=== PATIENT | male | born 1955 | race Caucasian/White ===

== ENCOUNTER 2017-12-13 06:39 | Emergency (ER) | payer OTHER ==
[~2017-12-13 06:39] MED LIST: AMLO-114 PO; ASPCH81X PO; GLC500 PO; LISI20TA3 PO; PANT40TA PO; SIMV20TA2 PO
[2017-12-13 06:47] VITALS: TEMP 36.7; Ht 193 cm
[2017-12-13] MEDS ORDERED: ATOR-24 PO (07:12)
[2017-12-13] MEDS ORDERED: MELO7.5T5 PO (07:12)
[2017-12-13] MEDS ORDERED: HYDR-5688 PO (07:12)
[2017-12-13] MEDS ORDERED: DICLOFENAC SOD 1% GEL 100 GM TUBE EXT STA (07:19)
[2017-12-13] MEDS ORDERED: ACETAMINOPHEN 500 MG TAB PO STA (07:19)
--- NOTE | 2017-12-13 07:20 | EMERGENCY ROOM VISIT NOTE ---
ED Visit Note First contact with patient: 06:52 CHIEF COMPLAINT: Left hip pain HISTORY OF PRESENT ILLNESS: This 62-year-old male patient presents to the emergency department, ambulatory, with his , complaining of left hip pain. The patient states yesterday he bent over, and began experiencing the pain. He states last evening he noticed a bulge in the area of the hip, and thought his bone was out of the socket. He was able to stand, sit, and walk when this occurred. He states last evening his pain was a 9/10. He was unable to sleep due to the pain. He did take a dose of hydrocodone and states he did not note significant improvement in his symptoms. He did take a dose of Advil as well. This morning, while walking into the bathroom, he states the hip "gave out". He reports falling and landing on his buttocks. He denies striking his head. He states since then he is having difficulty with weightbearing. His pain has now improved to 5/10. He states the joint feels "loose". He denies any numbness , tingling, weakness, saddle anesthesia, back pain (different than his chronic back pain related to a discectomy), previous injury to the hip. The patient does report a history of HTN and has not yet taken his medication. REVIEW OF SYSTEMS: A 6 system review of systems was performed with positives and pertinent negatives listed in the history of present illness. All other systems were reviewed and are negative. ALLERGIES: None MEDICATIONS: Metformin, Mobic, Lipitor, Norvasc PMH: Hypertension, prediabetes SOCIAL HISTORY: Patient lives locally with family. He denies drug, alcohol, tobacco use. PHYSICAL EXAM: VITALS: Vitals are noted on the nurse's note and reviewed by myself. Vital signs stable. GENERAL: This is a 62-year-old white male, in no acute distress, nondiaphoretic , well-developed well-nourished. MUSCULOSKELETAL - Left hip without erythema, edema, and ecchymosis. Mild tenderness to palpation appreciated over the greater trochanter. No tenderness extending into the upper leg or buttocks. 5/5 strength appreciated throughout. Pt has full AROM at affected joint. Equal strength Left/Right versus Left/ Right. Pt able to perform AROM at affected joint. No tenderness to palpation appreciated in the lumbar spine distribution. MARIE (GABRIEL) TEST: Positive for tenderness at extreme of external rotation , but good ROM HIP SCOURING TEST: No labral tear. NEUROLOGIC/VASCULAR - Neurovascularly intact distally with +3/5 dorsalis pedis pulses palpated bilaterally. Normal sensation to light and sharp touch appreciated distally. RADIOLOGY: L PELVIS/UNILATERAL HIP 2-3VIEWS CLINICAL HISTORY: 62 years-old Male presenting with left hip pain, fall. TECHNIQUE: Single frontal view of the pelvis and frontal and frog-leg lateral views of the left hip were obtained. COMPARISON: None. FINDINGS: Sacrum and iliac joints, hip joints, pubic symphysis congruent. Bony pelvis intact. Arcuate lines intact. Left femoral neck intact. No acute fracture or malalignment. No advanced degenerative change. No radiographic soft tissue abnormality. IMPRESSION: No acute osseous injury or advanced degenerative change. Electronically signed by: Dre Martinez M.D. 12/13/2017 7:49 AM Dictated Date/Time: 12/13/2017 7:48 AM EMERGENCY DEPARTMENT COURSE: The patient was seen and evaluated as above. X- rays performed and reviewed by myself and radiologist as above. The patient was given Voltaren gel and 1g Tylenol. I discussed the findings with the patient and his at bedside. I did offer crutches or a walker to help with ambulation. The patient requests crutches. He was given crutches with gait training. He was encouraged to follow-up within 1 week with orthopedics. He verbalizes agreement with the assessment and plan. Discharge instructions reviewed. The patient was discharged home in good condition. I attest that I have personally reviewed the patient's current medication list. Blood Pressure Screening: Patient was found to have a slightly elevated blood pressure due to circumstances. I do not believe that the patient requires hypertension monitoring. The patient does have a hx. HTN and has not taken his medication this morning. Etiologies such as soft tissue injury, fracture, dislocation, subluxation, bursitis, neurovascular compromise, compartment syndrome, as well as others were entertained. DIAGNOSIS: left hip pain The chart was completed utilizing [employer] voice recognition software. Grammatical errors, random word insertions, pronoun errors, and incomplete sentences are an occasional consequence of this system due to software limitations, ambient noise, and hardware issues. Any formal questions or concerns about the content, text, or information contained within the body of this dictation should be directly addressed to the provider for clarification. Current/Historical Medications Scheduled Amlodipine (Norvasc), 10 MG PO QPM Atorvastatin (Lipitor), 40 MG PO DAILY Lisinopril (Prinivil), 20 MG PO QPM Meloxicam (Mobic), 15 MG PO DAILY Metformin HCl (Metformin HCl), 1 TAB PO TID Scheduled PRN Hydrocodone/Acetaminophen 5MG/325MG (Closter 5MG/325MG), 1 TABLET PO BID PRN for Pain Allergies Coded Allergies: No Known Allergies (Unverified , 12/13/17) Vital Signs Date Time Temp Pulse Resp B/P (MAP) Pulse Ox O2 Delivery O2 Flow Rate FiO2 12/13/17 06:47 36.7 79 20 145/104 98 Room Air Medications Administered Medications (Trade) Dose Ordered Sig/Nisa Route Start Time Stop Time Status Last Admin Dose Admin Diclofenac Sodium (Voltaren 1% Top Gel) 1 appln NOW STAT EXT 12/13/17 07:19 12/13/17 07:20 DC 12/13/17 07:19 1 APPLN Acetaminophen (Tylenol Tab) 1,000 mg NOW STAT PO 12/13/17 07:19 12/13/17 07:20 DC 12/13/17 07:19 1,000 MG Departure Information Impression Primary Impression: Left hip pain Dispostion Home / Self-Care Condition GOOD Referrals Drake Greene M.D. (MEDICAL) (PCP) [facility] Patient Instructions ED Sprain Hip, My [facility] Additional Instructions You were seen in the ED today for left hip pain. I suspect either a sprain, strain, bursitis, or mild subluxation yesterday. X-ray was negative for fracture. Take the Mobic you have at home as directed for pain. Use Voltaren gel up to 4 times per day as needed for pain. Acetaminophen(Tylenol) may be used for fever or pain. Use 1000mg every six hours as needed. Avoid using more than 4000mg in a 24 hour period. Ice compresses for 20 minutes at a time four times daily for 2-3 days. Use the crutches as instructed to help with ambulation. Rest and elevate your injury. Return to the ER immediately for any numbness, tingling, severe pain, extreme swelling in the extremity or as needed. Call [facility], [phone], next week if no improvement in symptoms, or sooner if you experience any worsening of your symptoms, to arrange follow up for your injury.
--- NOTE | 2017-12-13 07:50 | DIAGNOSTIC IMAGING REPORT ---
L PELVIS/UNILATERAL HIP 2-3VIEWS CLINICAL HISTORY: 62 years-old Male presenting with left hip pain, fall. TECHNIQUE: Single frontal view of the pelvis and frontal and frog-leg lateral views of the left hip were obtained. COMPARISON: None. FINDINGS: Sacrum and iliac joints, hip joints, pubic symphysis congruent. Bony pelvis intact. Arcuate lines intact. Left femoral neck intact. No acute fracture or malalignment. No advanced degenerative change. No radiographic soft tissue abnormality. IMPRESSION: No acute osseous injury or advanced degenerative change. Electronically signed by: Dre Martinez M.D. 12/13/2017 7:49 AM Dictated Date/Time: 12/13/2017 7:48 AM
[2017-12-13 08:14] VITALS: BP 143/117; PULSE 71; O2SAT 95
== END 2017-12-13 08:15 | disposition home or self-care (01) ==
LOC: C.EDB 06:40
DX: M25.552 Pain in left hip (principal); W19.XXXA Unspecified fall, initial encounter; M54.9 Dorsalgia, unspecified; G89.29 Other chronic pain; I10 Essential (primary) hypertension; R73.03 Prediabetes; Z79.899 Other long term (current) drug therapy

== ENCOUNTER 2020-06-19 11:49 | Inpatient (IN) ==
[2020-06-19] MEDS ORDERED: MoRPHine SULFATE 4 MG/ML 1 ML CARP\\VIAL IV STA ×2 (12:15→14:32)
[2020-06-19] MEDS ORDERED: ONDANSETRON INJ 2 MG/ML 2 ML VIAL IV STA (12:15)
--- NOTE | 2020-06-19 12:18 | Emergency Department Note ---
History of Present Illness General Chief complaint: Back Injury/Pain Stated complaint: SEVERE LOWER BACK PAIN Time Seen by Provider: 06/19/20 12:05 History of Present Illness Maximum Pain Intensity: 8 This is a 65-year-old male that presents to the emergency department via private vehicle with complaints of "severe lower back pain, cannot take pain anymore". The patient notes a history of chronic back pain and is scheduled for surgery with Dr. Lombardo on July 26. Patient notes that this past Sunday he was performing normal activities and then Sunday when he woke up he felt st iffness in the back. This is not necessarily new for him however this seemed to worsen and Sunday. He notes the pain is now excruciating and he cannot find any relief. He presented here yesterday and notes that he received pain medication and steroids without relief. He persists with discomfort and now cannot lay flat or stand. He has to sit in a hunched over position at all times. Current discomfort 03/01. It is worse with laying flat and ambulation. Patient also notes new onset right lower extremity edema. No lower extremity weakness, bowel or bladder incontinence, numbness or tingling in the genital region. No fevers, chills, chest pain or shortness of breath. Home Medications Medication Instructions Recorded Confirmed Type docusate sodium [Colace] 100 mg PO BID #60 cap 06/18/20 06/19/20 Rx lidocaine [Lidoderm] 1 patch TOPICAL DAILY #15 ea 06/18/20 06/19/20 Rx oxycodone 5 mg PO Q6H PRN #14 tab 06/18/20 06/19/20 Rx sennosides [Senokot] 8.6 mg PO HS #30 tab 06/18/20 06/19/20 Rx amlodipine 10 mg PO DAILY 06/19/20 06/19/20 History gabapentin 300 mg PO DIRECTED 06/19/20 06/19/20 History lisinopril 20 mg PO DAILY 06/19/20 06/19/20 History metformin 500 mg PO TID 06/19/20 06/19/20 History pantoprazole 40 mg PO BID 06/19/20 06/19/20 History tramadol 50 mg PO Q6 06/19/20 06/19/20 History Allergies Allergy/AdvReac Type Severity Reaction Status Date / Time No Known Allergies Allergy Unverified 12/13/17 07:12 Past Med/Surg History Medical History GERD (gastroesophageal reflux disease) Hyperlipidemia Hypertension Lumbar spinal stenosis Type 2 diabetes mellitus Surgical History History of back surgery L5 discectomy 1996 Social History Smoking Status: Never smoker Hx Alcohol Use: Yes Alcohol Intake Frequency: Monthly or Less 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 Feels Safe at Home: Yes Review of Systems A total of 10 systems reviewed and were otherwise negative Physical Exam Vital Signs Vital Signs - 24 hr 06/19/20 11:53 06/19/20 13:49 Temperature 37.2 C Temperature Source Oral Pulse Rate 77 Pulse Rate [Finger] 66 Pulse Rhythm Regular Pulse Strength Normal Respiratory Rate 18 17 Respiratory Effort / Characteristics Non-Labored Respiratory Depth Normal Respiratory Pattern Regular Blood Pressure 157/105 H Blood Pressure [Right Arm] 115/72 Blood Pressure Mean 122 Blood Pressure Mean [Right Arm] 86 Blood Pressure Position Sitting Pulse Oximetry 98 99 Oxygen Delivery Method Room Air Room Air Sepsis Recent Fever Within 48 Hours No Sepsis New/Unexplained Change in Mental Status No Sepsis Action Taken by Nursing No Action Required VITAL SIGNS - Vital signs and nursing notes were reviewed. Stable and afebrile. GENERAL -65-year-old male appearing he is stated age who is in no acute distress but appears to be in pain and is sitting in a forward flexed position in a wheelchair. Communicates well with provider and answers questions appropriately. SKIN -no meningeal or petechial rash. NECK - Neck with FROM. No nuchal rigidity. LUNGS - Chest wall symmetric without accessory muscle use, intercostals retractions, or central cyanosis. Normal vesicular breath sounds CTA B/L. No wheezes, rales, or rhonchi appreciated. CARDIAC - RRR with S1/S2. No murmur, rubs, or gallops appreciated. ABDOMEN - Abdominal contour normal without pulsations or visible masses. BS normoactive all four quadrants. No tenderness, palpable masses, hepatosplenomegaly, or ascites noted. EXTREMITIES - No clubbing or peripheral cyanosis. No pretibial edema present. +5/5 strength noted in UE/LE bilaterally. NEUROLOGIC - Cranial nerves II through XII grossly intact. Sensory intact to light touch throughout. PSYCH - A&O, and cooperates fully with examiner. Pt is very pleasant and interacts well with examiner. Course Administered Medications Discontinued Medications Acetaminophen (Acetaminophen 325 Mg Tab) 650 mg PO NOW STA Stop: 06/19/20 14:33 Last Admin: 06/19/20 14:40 Dose: 650 mg Documented by: [id number] Dexamethasone (Dexamethasone Sod Inj 10 Mg/Ml Vial) 10 mg IV NOW ONE Stop: 06/19/20 14:33 Last Admin: 06/19/20 14:40 Dose: 10 mg Documented by: [id number] Ketorolac Tromethamine (Ketorolac 30 Mg/Ml Vial) 30 mg IV NOW ONE Stop: 06/19/20 14:33 Last Admin: 06/19/20 14:40 Dose: 30 mg Documented by: [id number] Lidocaine (Lidocaine 5% 1 Patch) 1 patch TD NOW STA Stop: 06/19/20 14:33 Last Admin: 06/19/20 14:40 Dose: 1 patch Documented by: [id number] Morphine Sulfate (Morphine Sulfate 4 Mg/Ml 1 Ml Carp\\Vial) 4 mg IV NOW STA Stop: 06/19/20 12:16 Last Admin: 06/19/20 12:35 Dose: 4 mg Documented by: [id number] Morphine Sulfate (Morphine Sulfate 4 Mg/Ml 1 Ml Carp\\Vial) 4 mg IV NOW STA Stop: 06/19/20 14:33 Last Admin: 06/19/20 14:40 Dose: 4 mg Documented by: [id number] Ondansetron HCl (Ondansetron Inj 2 Mg/Ml 2 Ml Vial) 4 mg IV NOW STA Stop: 06/19/20 12:16 Last Admin: 06/19/20 12:35 Dose: 4 mg Documented by: [id number] Medical Decision Making Laboratory Data Result diagrams: 06/19/20 12:29 06/19/20 12:29 Lab Results 06/19/20 06/19/20 Range/Units 12:29 12:29 WBC 10.61 (4.8-10.8) K/uL RBC 4.90 (4.7-6.1) M/uL Hgb 15.7 (14.0-18.0) g/dL Hct 46.2 (42-52) % MCV 94.3 (80-100) fL MCH 32.0 (25-34) pg MCHC 34.0 (32-36) g/dL RDW Std Deviation 49.0 H (36.4-46.3) fL RDW Coeff of Da 14.2 (11.5-14.5) % Plt Count 279 (130-400) K/uL MPV 10.6 H (7.4-10.4) fL Immature Gran % (Auto) 0.1 % Neut % (Auto) 77.2 % Lymph % (Auto) 13.9 % Eagle % (Auto) 7.9 % Eos % (Auto) 0.6 % Baso % (Auto) 0.3 % Neut # (Auto) 8.19 H (1.4-6.5) K/uL Lymph # (Auto) 1.48 (1.2-3.4) K/uL Eagle # (Auto) 0.84 H (0.11-0.59) K/uL Eos # (Auto) 0.06 (0-0.5) K/uL Baso # (Auto) 0.03 (0-0.2) K/uL Immature Gran # (Auto) 0.01 (0.00-0.02) K/uL Sodium 138 (136-145) mmol/L Potassium 3.9 (3.5-5.1) mmol/L Chloride 106 (98-107) mmol/L Carbon Dioxide 30 (21-32) mmol/L Anion Gap 2.0 L (3-11) BUN 16 (7-18) mg/dl Creatinine 0.88 (0.6-1.4) mg/dl Est Cr Clr Drug Dosing Not Reportable Est GFR ( Amer) 104.5 Est GFR (Non-Af Amer) 90.1 BUN/Creatinine Ratio 18.0 (10-20) Glucose 128 H (70-99) mg/dl Calcium 9.4 (8.5-10.1) mg/dl Total Bilirubin 0.4 (0.2-1) mg/dl AST 13 L (15-37) U/L ALT 26 (12-78) U/L Alkaline Phosphatase 79 (45-117) U/L Total Protein 8.2 (6.4-8.2) gm/dl Albumin 4.4 (3.4-5.0) gm/dl Globulin 3.8 (2.5-4.0) gm/dl Albumin/Globulin Ratio 1.2 (0.9-2) Imaging Data Radiologist's Impression: CT lumbar spine wo con HISTORY: 65 years-old Male Low back pain acute low back pain without reported trauma. COMPARISON: MRI lumbar spine 02/26/2020 TECHNIQUE: Multiple axial CT images of the lumbar spine were obtained without the use of IV contrast. A dose lowering technique was used consistent with the principals of ALA. FINDINGS: 18 degrees dextroscoliosis measured from L1-L4. Severe disc space narrowing with moderate spondylitic spurring at L1-L2. 4 mm anterolisthesis L3 on L4 is likely secondary to chronic facet arthrosis. Moderate to severe disc space narrowing at L5-S1 with posterior disc osteophyte complex. No acute fracture or subluxation. The imaged sacrum and iliac bones appear intact. Severe multilevel facet arthrosis. Calcified plaque of the abdominal aorta without aneurysm. No adenopathy. The paraspinal tissues are unremarkable. T12-L1: Posterior annular disc bulge with ligamentum flavum thickening and moderate facet arthrosis. Mild flattening of the ventral thecal sac without significant central canal stenosis. Mild bilateral foraminal narrowing. L1-L2: Posterior disc osteophyte complex with ligamentum flavum thickening and moderate facet arthrosis. Flattening of the ventral thecal sac without significant central canal stenosis. There is at least mild narrowing of the lateral recesses. Moderate right and severe left foraminal narrowing. L2-L3: Posterior annular disc bulge with suggestion of a superimposed left paracentral/left lateral recess disc protrusion (image 164 series 3 image 38 series 301). This appears similar to comparison and again causes severe central canal stenosis with moderate right and severe left lateral recess narrowing. Moderate left with mild to moderate right foraminal narrowing. L3-L4: Grade 1 anterolisthesis, likely degenerative. Posterior annular disc bulge/disc space uncovering with ligamentum flavum thickening and severe facet arthrosis. There is unchanged severe central canal stenosis with severe narrowing of the lateral recesses. Severe left with moderate right foraminal narrowing. L4-L5: Posterior annular disc bulge with ligamentum flavum thickening and severe facet arthrosis. There is unchanged severe central canal stenosis with severe narrowing of the lateral recesses. Moderate left with moderate to severe right foraminal narrowing. L5-S1: Posterior disc osteophyte complex with ligamentum flavum thickening and moderate to severe facet arthrosis. Mild central canal stenosis with moderate bilateral foraminal narrowing. IMPRESSION: 1. No acute fracture or subluxation. 2. Multilevel discogenic degeneration with ligamentum flavum thickening and facet arthrosis redemonstrated which again results in severe multilevel central canal stenosis with multilevel foraminal narrowing. Findings appear similar to the 02/26/2020 MRI lumbar spine. 3. Lumbar dextroscoliosis. ACT 112: Negative or not required by law. The above report was generated using voice recognition software. It may contain grammatical, syntax or spelling errors. Electronically signed by: Luis Stein M.D. 06/19/2020 1:34 PM US venous doppler LE RT HISTORY: 65 years-old Male RLE edema acute swelling of the right lower extremity COMPARISON: None TECHNIQUE: Multiple real-time sonographic images of the right lower extremity deep venous structures were obtained assessing grayscale appearance, color and spectral flow FINDINGS: Normal flow, compressibility, phasicity and augmentation of the right lower extremity deep venous structures. IMPRESSION: No sonographic evidence of deep venous thrombosis. ACT 112: Negative or not required by law. The above report was generated using voice recognition software. It may contain grammatical, syntax or spelling errors. Electronically signed by: Luis Stein M.D. 06/19/2020 2:25 PM MDM Narrative Patient was seen and evaluated as above in room C 11. Review was performed of nursing notes and vital signs. I did review pertinent previous visits and patient history. After obtaining a thorough history and physical examination the above work up was performed. He presents to us today with low back pain. He has history of such. I reviewed the previous MRI. Given the patient's inability to stand or lay flat and continued pain despite medication it is felt that further evaluation and management is warranted. IV access was established. Labs were drawn. A CT scan was obtained of the L-spine. Results as above. There is multilevel discogenic degeneration with ligamentum flavum thickening and facet arthrosis redemonstrated which again results in severe multilevel central canal stenosis with multilevel foraminal narrowing. These findings are similar compared to previous MRI. With the patient's clinical presentation wor sening I did find it reasonable to discuss this with the patient's establish associate relations specialist, Dr. Lombardo. We reviewed care as well as requiring multiple IV analgesics here. At this point inpatient management is felt warranted with likely surgical intervention in the near future. Patient will be admitted to medicine noting his other comorbidities and will be evaluated in the a.m. by Dr. Lobmardo here in the hospital. Patient in agreement with plan of care and very appreciative. Case discussed with Dr. Brand of medicine team. Please refer to further documentation regarding his stay. In addition, a right lower extremity ultrasound was obtained to rule out DVT and this was negative. No neurovascular deficit on today's examination. In addition to the patient being admitted, at this time we will refrain from any further dosing of Toradol and dexamethasone pending surgical intervention. Case was discussed with the attending physician. GCS: 15 In the evaluation and treatment of this patient the following differential diagnosis entertained: Fracture, dislocation, subluxation, cauda equina syndrome, AAA, diverticulitis, appendicitis, torsion, osteomyelitis, piriformis syndrome, strain, sprain, among others. Impression & Plan Intractable low back pain Discharge Plan Visit Data Chief Complaint: Back Injury/Pain Stated Complaint: SEVERE LOWER BACK PAIN ED Provider: [facility] ED Midlevel Provider: Pb Dickson Discharge Problem: Intractable low back pain Patient Disposition: Home - Self-Care Forms Stand Alone Forms: [facility], Virtual Emergency Department, Important Visit Information Prescriptions Prescriptions: No Action lidocaine [Lidoderm] 5 % adhesive patch,medicated 1 patch topical DAILY Qty: 15 RF: 0 oxycodone 5 mg tablet 5 mg PO Q6H PRN (Reason: pain) Qty: 14 RF: 0 sennosides [Senokot] 8.6 mg tablet 8.6 mg PO HS Qty: 30 RF: 0 docusate sodium [Colace] 100 mg capsule 100 mg PO BID Qty: 60 RF: 0 metformin 500 mg tablet 500 mg PO TID RF: 0 lisinopril 20 mg tablet 20 mg PO DAILY RF: 0 tramadol 50 mg tablet 50 mg PO Q6 RF: 0 amlodipine 10 mg tablet 10 mg PO DAILY RF: 0 pantoprazole 40 mg tablet,delayed release (DR/EC) 40 mg PO BID RF: 0 gabapentin 300 mg capsule 300 mg PO DIRECTED RF: 0 Referrals Referrals: Nikolay Byers [Primary Care Provider] -
[2020-06-19 12:52] LABS: Basophils # (auto) 0.03 K/uL (0-0.2); Basophils % (auto) 0.3 %; Eosinophils # (auto) 0.06 K/uL (0-0.5); Eosinophils % (auto) 0.6 %; Hematocrit (blood only) 46.2 % (42-52); Hemoglobin 15.7 g/dL (14.0-18.0); Immature Granulocytes # (auto) 0.01 K/uL (0.00-0.02); Immature Granulocytes % (auto) 0.1 %; Lymphocytes # (auto) 1.48 K/uL (1.2-3.4); Lymphocytes % (auto) 13.9 %; Mean Corpuscular Volume 94.3 fL (80-100); Mean Platelet Volume 10.6 fL (7.4-10.4); Monocytes # (auto) 0.84 K/uL (0.11-0.59); Monocytes % (auto) 7.9 %; Neutrophils # (auto) 8.19 K/uL (1.4-6.5); Neutrophils % (auto) 77.2 %; Platelet Count 279 K/uL (130-400); RDW Coefficient of Variation 14.2 % (11.5-14.5); White Blood Count 10.61 K/uL (4.8-10.8)
[2020-06-19 13:10] LABS: Alanine Aminotransferase 26 U/L (12-78); Albumin Level 4.4 gm/dl (3.4-5.0); Aspartate Aminotransferase 13 U/L (15-37); Blood Urea Nitrogen 16 mg/dl (7-18); Calcium 9.4 mg/dl (8.5-10.1); Carbon Dioxide 30 mmol/L (21-32); Chloride 106 mmol/L (98-107); Est GFR (African American) 104.5; Est GFR (Non-African American) 90.1; Glucose 128 mg/dl (70-99); Potassium 3.9 mmol/L (3.5-5.1); Sodium 138 mmol/L (136-145)
[2020-06-19 13:13] LABS: Albumin Globulin Ratio 1.2 (0.9-2); Alkaline Phosphatase 79 U/L (45-117); Bilirubin,Total 0.4 mg/dl (0.2-1); Globulin 3.8 gm/dl (2.5-4.0); Total Protein 8.2 gm/dl (6.4-8.2)
--- NOTE | 2020-06-19 13:35 | CT Scan Report ---
CT lumbar spine wo con HISTORY: 65 years-old Male Low back pain acute low back pain without reported trauma. COMPARISON: MRI lumbar spine 02/26/2020 TECHNIQUE: Multiple axial CT images of the lumbar spine were obtained without the use of IV contrast. A dose lowering technique was used consistent with the principals of ROBEL. FINDINGS: 18 degrees dextroscoliosis measured from L1-L4. Severe disc space narrowing with moderate spondylitic spurring at L1-L2. 4 mm anterolisthesis L3 on L4 is likely secondary to chronic facet arthrosis. Mod erate to severe disc space narrowing at L5-S1 with posterior disc osteophyte complex. No acute fractu re or subluxation. The imaged sacrum and iliac bones appear intact. Severe multilevel facet arthrosis . Calcified plaque of the abdominal aorta without aneurysm. No adenopathy. The paraspinal tissues are u nremarkable. T12-L1: Posterior annular disc bulge with ligamentum flavum thickening and moderate facet arthrosis. Mild flattening of the ventral thecal sac without significant central canal stenosis. Mild bilateral foraminal narrowing. L1-L2: Posterior disc osteophyte complex with ligamentum flavum thickening and moderate facet arthros is. Flattening of the ventral thecal sac without significant central canal stenosis. There is at leas t mild narrowing of the lateral recesses. Moderate right and severe left foraminal narrowing. L2-L3: Posterior annular disc bulge with suggestion of a superimposed left paracentral/left lateral r ecess disc protrusion (image 164 series 3 image 38 series 301). This appears similar to comparison an d again causes severe central canal stenosis with moderate right and severe left lateral recess narro wing. Moderate left with mild to moderate right foraminal narrowing. L3-L4: Grade 1 anterolisthesis, likely degenerative. Posterior annular disc bulge/disc space uncoveri ng with ligamentum flavum thickening and severe facet arthrosis. There is unchanged severe central ca nal stenosis with severe narrowing of the lateral recesses. Severe left with moderate right foraminal narrowing. L4-L5: Posterior annular disc bulge with ligamentum flavum thickening and severe facet arthrosis. The re is unchanged severe central canal stenosis with severe narrowing of the lateral recesses. Moderate left with moderate to severe right foraminal narrowing. L5-S1: Posterior disc osteophyte complex with ligamentum flavum thickening and moderate to severe fac et arthrosis. Mild central canal stenosis with moderate bilateral foraminal narrowing. IMPRESSION: 1. No acute fracture or subluxation. 2. Multilevel discogenic degeneration with ligamentum flavum thickening and facet arthrosis redemonst rated which again results in severe multilevel central canal stenosis with multilevel foraminal narro wing. Findings appear similar to the 02/26/2020 MRI lumbar spine. 3. Lumbar dextroscoliosis. ACT 112: Negative or not required by law. The above report was generated using voice recognition software. It may contain grammatical, syntax o r spelling errors. Electronically signed by: Luis Stein M.D. 06/19/2020 1:34 PM
--- NOTE | 2020-06-19 14:26 | Ultrasound Report ---
US venous doppler LE RT HISTORY: 65 years-old Male RLE edema acute swelling of the right lower extremity COMPARISON: None TECHNIQUE: Multiple real-time sonographic images of the right lower extremity deep venous structures were obtained assessing grayscale appearance, color and spectral flow FINDINGS: Normal flow, compressibility, phasicity and augmentation of the right lower extremity deep venous str uctures. IMPRESSION: No sonographic evidence of deep venous thrombosis. ACT 112: Negative or not required by law. The above report was generated using voice recognition software. It may contain grammatical, syntax o r spelling errors. Electronically signed by: Luis Stein M.D. 06/19/2020 2:25 PM
[2020-06-19] MEDS ORDERED: DEXAMETHASONE SOD INJ 10 MG/ML VIAL IV ONE (14:32)
[2020-06-19] MEDS ORDERED: LIDOCAINE 5% 1 PATCH TD STA (14:32)
[2020-06-19] MEDS ORDERED: KETOROLAC 30 MG/ML VIAL IV ONE (14:32)
[2020-06-19] MEDS ORDERED: ACETAMINOPHEN 325 MG TAB PO STA (14:32)
--- NOTE | 2020-06-19 14:42 | Emergency Department Note ---
ED Visit Note I have seen and examined this patient with Pb Dickson and generally agree with the treatment plan as discussed. .
--- NOTE | 2020-06-19 15:27 | History & Physical Report ---
Date of Service June 19, 2020 Assessment & Plan (1) Intractable back pain: Acetaminophen 1g TID Gabapentin 300mg PO TID Lidocaine patch Oxycodone 5-10mg PO Q4H PRN Dilaudid is oxycodone above interventions ineffective. No further steroids or NSAIDs per Dr Lombardo's recommendations as surgery potentially planned for Sunday Preop EKG and chest x-ray ordered (2) Lumbar spinal stenosis: Consult orthopedic surgery - Dr Lombardo aware and will see tomorrow (3) GERD (gastroesophageal reflux disease): Continue pantoprazole 40 mg p.o. twice daily (4) Type 2 diabetes mellitus: HbA1c with a.m. labs BSG ACHS Insulin NPH 10 units x1 to cover for dexamethasone. Lantus 5 units twice daily NovoLog: Goal BSG Range: Low 110 mg/dL, High 140 mg/dL Correction Factor: 45 mg/dL/unit INS:CHO Ratio: 1unit per 15 gms CHO consumed (5) Hypertension: Continue his usual home regimen of lisinopril 20 mg p.o. daily, amlodipine 10 mg p.o. daily. (6) Hyperlipidemia: Notable history of this from patient but not on statin. Follow-up outpatient. (7) DVT prophylaxis: SCDs Admission and Anticipated Discharge Date Admission Date: 06/19/2020 History of Present Illness Chief Complaint: Back pain Primary Care Provider: Nikolay Byers Shahram Draper is a 65 year old male who presents to the ER with severe back pain radiating down his right leg. He is known to Dr Lombardo and already has spinal fusion surgery planned for July. He has had back pain on and off after a slipped disc in 1996. However sudden became worse 3 days ago. Unsure what he did to exacerbate it but has been getting progressively worse since. He came to the ER yesterday and was given a course of steroids and oxycodone however despite these interventions his pain is 10/10 and he is stuck in a bent over position in a wheelchair. He is usually ambulatory with a cane. No perianal numbness or bladder/bowel incontinence. He does note gabapentin is useful for his pain. His care was discussed with Dr Lombardo by the ER PA and advised admission under medicine and he will see in the morning potentially for need for surgery on Sunday. Allergies Allergy/AdvReac Type Severity Reaction Status Date / Time No Known Allergies Allergy Unverified 12/13/17 07:12 Home Medications Medication Instructions Recorded Confirmed Type docusate sodium [Colace] 100 mg PO BID #60 cap 06/18/20 06/19/20 Rx lidocaine [Lidoderm] 1 patch TOPICAL DAILY #15 ea 06/18/20 06/19/20 Rx oxycodone 5 mg PO Q6H PRN #14 tab 06/18/20 06/19/20 Rx sennosides [Senokot] 8.6 mg PO HS #30 tab 06/18/20 06/19/20 Rx amlodipine 10 mg PO DAILY 06/19/20 06/19/20 History gabapentin 300 mg PO DIRECTED 06/19/20 06/19/20 History lisinopril 20 mg PO DAILY 06/19/20 06/19/20 History metformin 500 mg PO TID 06/19/20 06/19/20 History pantoprazole 40 mg PO BID 06/19/20 06/19/20 History tramadol 50 mg PO Q6 06/19/20 06/19/20 History Past Med/Surg History Medical History GERD (gastroesophageal reflux disease) Hyperlipidemia Hypertension Lumbar spinal stenosis Type 2 diabetes mellitus Surgical History History of back surgery L5 discectomy 1996 Social History Smoking Status: Never smoker Hx Alcohol Use: No Hx Substance Use: No Communication Ability: Effective Radar Air Traffic Controller Required: No Beliefs That Will Affect Care: None Current Living Situation: Spouse 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 Other Information That Helps Us Care for You: No Feels Safe at Home: Yes Safety Concerns: Feels Safe At This Time Assistive Devices: Walker Review of Systems Review of Systems: All systems reviewed & are unremarkable except as noted in HPI & below Physical Exam Constitutional: + acute distress (patient is stuck in wheelchair leaning forward to avoid severe pain) Eyes: + anicteric sclerae; normal pupil size ENMT: external ear and nose normal, oropharynx normal Neck: trachea midline Respiratory: normal respiratory effort, lungs clear to auscultation Cardiovascular: RRR, no murmur, no edema Gastrointestinal (Abdomen): normal bowel sounds, soft, nontender, no hepatosplenomegaly Musculoskeletal: Spine: + lumbar spinal tenderness (L4-5 central but also paraspinal R> L) Skin: no rashes, warm and dry Neurologic: Motor/Sensory: + sensory deficit (LE b/l No L4-S1 numbness) Psychiatric: Orientation: alert and oriented x 3 Affect: + tearful affect Mood: + depressed mood Results & Data Results & Data ([facility]) Vital Signs (Past 12 Hours) Vital Signs Temp Pulse Pulse Resp BP BP Pulse Ox 06/19/20 13:49 66 17 115/72 99 06/19/20 11:53 37.2 C 77 18 157/[address] lumbar spine wo con IMPRESSION: 1. No acute fracture or subluxation. 2. Multilevel discogenic degeneration with ligamentum flavum thickening and facet arthrosis redemonstrated which again results in severe multilevel central canal stenosis with multilevel foraminal narrowing. Findings appear similar to the 02/26/2020 MRI lumbar spine. 3. Lumbar dextroscoliosis. US venous doppler LE RT IMPRESSION: No sonographic evidence of deep venous thrombosis. Code Status & VTE Plan VTE Prophylaxis Plan VTE Prophylaxis will be ordered: Yes PG Care Time/CCT Total # of Minutes Spent Total Time Spent with Patient: Total time spent is greater than 50% in coordination of care (as documented) at patient's floor/unit and/or counseling patient: Coding Level of Care Code 74444 Initial Inpt Care Lvl 2 Diagnoses Intractable back pain M54.9 Lumbar spinal stenosis M48.061 GERD (gastroesophageal reflux disease) K21.9 Type 2 diabetes mellitus E11.9 Hypertension I10 Hyperlipidemia E78.5 DVT prophylaxis Z29.9
[2020-06-19] MEDS ORDERED: GLUCOSE 10 TABS/TUBE PO PRN (18:51)
[2020-06-19] MEDS ORDERED: CARBOHYDRATES FOR HYPOGLYCEMIA PO PRN (18:51)
[2020-06-19] MEDS ORDERED: GLUCAGON FOR INJ 1 MG VIAL SQ PRN (18:51)
[2020-06-19] MEDS ORDERED: POLYETHYLENE (MIRALAX) 17 GM PACK PO PRN (18:51)
[2020-06-19] MEDS ORDERED: DEXTROSE 50% 50 ML SYRINGE IV PRN (18:51)
[2020-06-19] MEDS ORDERED: ALUMINUM/MAGNESIUM SUSP 30 ML UDC PO PRN (18:51)
[2020-06-19] MEDS ORDERED: ONDANSETRON INJ 2 MG/ML 2 ML VIAL IV PRN (18:51)
[2020-06-19] MEDS ORDERED: GLUCOSE 40% GEL 15 GM TUBE PO PRN (18:51)
[2020-06-19] MEDS: HYDROmorphone INJ 0.5 MG/0.5 ML SYR IV PRN (19:51)
[2020-06-19] MEDS: DOCUSATE SODIUM 100 MG CAP PO SCH (21:02)
[2020-06-19] MEDS: SENNA 8.6 MG TAB PO SCH (21:02)
[2020-06-19] MEDS: PANTOprazole 40 MG TAB PO SCH (21:02)
[2020-06-19] MEDS: GABAPENTIN 300 MG CAP PO SCH (21:02)
[2020-06-19] MEDS: ACETAMINOPHEN 500 MG TAB PO SCH (21:02)
[2020-06-19] MEDS: INSULIN ASPART 100 UNITS/ML 3 ML PEN SC SCH ×2 (21:05→23:26)
[2020-06-19] MEDS: INSULIN GLARGINE SOLOSTAR 100 UNITS/ML 3 ML PEN SC SCH (21:06)
[2020-06-19] MEDS ORDERED: [UNRECOGNIZED DRUG - OTHER] SC ONE (21:30)
[2020-06-19] MEDS: oxyCODONE HCL IR 5 MG TAB (IMMEDIATE RELEASE) PO PRN (23:47)
[2020-06-20] MEDS: oxyCODONE HCL IR 5 MG TAB (IMMEDIATE RELEASE) PO PRN ×4 (04:23→22:26)
--- NOTE | 2020-06-20 07:33 | XRay Report ---
SINGLE VIEW CHEST CLINICAL HISTORY: Preoperative examination. FINDINGS: An AP, portable, upright chest radiograph is obtained. No prior studies are available for c omparison at the time of dictation. The cardiomediastinal silhouette is unremarkable noting uncoiling of the thoracic aorta. The lungs and pleural spaces are clear. No pneumothorax is seen. The bony tho rax is grossly intact. IMPRESSION: No active disease in the chest. ACT 112: Negative or not required by law. Electronically signed by: Ravindra Hernandez M.D. 06/20/2020 7:32 AM
[2020-06-20] MEDS: HYDROmorphone INJ 0.5 MG/0.5 ML SYR IV PRN ×2 (07:42→22:31)
[2020-06-20] MEDS: DOCUSATE SODIUM 100 MG CAP PO SCH ×2 (09:32→21:13)
[2020-06-20] MEDS: LIDOCAINE 5% 1 PATCH TD SCH (09:33)
[2020-06-20] MEDS: GABAPENTIN 300 MG CAP PO SCH ×3 (09:34→21:13)
[2020-06-20] MEDS: amLODIPine BESYLATE 5 MG TAB PO SCH (09:34)
[2020-06-20] MEDS: PANTOprazole 40 MG TAB PO SCH ×2 (09:35→21:13)
[2020-06-20] MEDS: lisinopril 20 MG TAB PO SCH (09:35)
[2020-06-20] MEDS: ACETAMINOPHEN 500 MG TAB PO SCH ×3 (09:35→21:13)
[2020-06-20] MEDS: INSULIN GLARGINE SOLOSTAR 100 UNITS/ML 3 ML PEN SC SCH ×2 (09:37→21:22)
[2020-06-20] MEDS: INSULIN ASPART 100 UNITS/ML 3 ML PEN SC SCH ×4 (09:39→21:22)
--- NOTE | 2020-06-20 10:21 | Orthopedic Consultation ---
Date of Consultation June 20, 2020 Assessment & Plan (1) Neurogenic claudication due to lumbar spinal stenosis: Was able to review the patient's previous MRI and current CAT scan. Does have severe multilevel lumbar spinal stenosis with spondylolisthesis L3-L4. I reviewed these findings again with the patient. As he is having significant neurologic decline and pain with inability ambulate I am recommending urgent decompression and fusion. Would require a lumbar decompression fusion addressing stenosis from L2-S1. Risk benefits pros cons and alternatives were outlined in detail. At this time he made n.p.o. after midnight we will plan for the OR in the a.m. Present on Admission?: Yes History of Present Illness Reason for Consultation: experience severe back and right leg pain with weaknessPatient's Attending Physician: Diego Navarrete, DO History of Present Illness This is a 65-year-old male well-known to me that has established lumbar spinal stenosis with spondylolisthesis. He is tentatively scheduled for July of next year but had a marked clinical status over the past week. He denies any precipitating trauma fall or event. He has symptoms radiating predominantly in the right buttock right thigh to the knee. He is unable to stand and ambulate. He did come to the emergency room on Sunday for some pain medication injections however he had returned Sunday secondary to return of symptoms and inability to ambulate. Allergies Allergy/AdvReac Type Severity Reaction Status Date / Time No Known Allergies Allergy Unverified 12/13/17 07:12 Home Medications Medication Instructions Recorded Confirmed Type docusate sodium [Colace] 100 mg PO BID #60 cap 06/18/20 06/19/20 Rx lidocaine [Lidoderm] 1 patch TOPICAL DAILY #15 ea 06/18/20 06/19/20 Rx oxycodone 5 mg PO Q6H PRN #14 tab 06/18/20 06/19/20 Rx sennosides [Senokot] 8.6 mg PO HS #30 tab 06/18/20 06/19/20 Rx amlodipine 10 mg PO DAILY 06/19/20 06/19/20 History gabapentin 300 mg PO DIRECTED 06/19/20 06/19/20 History lisinopril 20 mg PO DAILY 06/19/20 06/19/20 History metformin 500 mg PO TID 06/19/20 06/19/20 History pantoprazole 40 mg PO BID 06/19/20 06/19/20 History tramadol 50 mg PO Q6 06/19/20 06/19/20 History Patient History Medical History GERD (gastroesophageal reflux disease) Hyperlipidemia Hypertension Lumbar spinal stenosis Type 2 diabetes mellitus Surgical History History of back surgery L5 discectomy 1996 Social History Smoking Status: Never smoker Hx Alcohol Use: No Hx Substance Use: No Communication Ability: Effective Menhaden Vessel Pilot Required: No Beliefs That Will Affect Care: None Current Living Situation: Spouse 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 Sitting up or standing straight reproduces severe pain. He does Exhibit 4/5 right quadriceps right dorsiflexion compared to 5/5 on the left. There is sensory deficits as well. He is obviously uncomfortable. He has no gross tension signs straight leg raising. Deep tendon reflexes are diminished bilaterally. Negative logroll. Results & Data ([facility]) Vital Signs (Past 12 Hours) Vital Signs Temp Pulse Resp BP Pulse Ox 06/20/20 07:34 36.7 C 79 16 155/79 H 99 06/19/20 23:31 36.8 C 86 15 131/88 98
--- NOTE | 2020-06-20 10:22 | Hospitalist Progress Note ---
Date of Service June 20, 2020 Assessment & Plan (1) Intractable low back pain: Intractable low back pain - Continue Acetaminophen 1g TID - Continue Gabapentin 300mg PO TID - ContinueLidocaine patch - Oxycodone 5-10mg PO Q4H PRN - Dilaudid for breakthrough pain - No further steroids or NSAIDs per Dr Lombardo's recommendations as surgery potentially planned for Sunday - Preop EKG ordered - CXR negative - Lumbar spine CT: Multilevel discogenic degeneration with ligamentum flavum thickening and facet arthrosis redemonstrated which again results in severe multilevel central canal stenosis with multilevel foraminal narrowing. Findings appear similar to the 02/26/2020 MRI lumbar spine. Lumbar dextroscoliosis. - Venous Doppler: No sonographic evidence of deep venous thrombosis - Ortho consult: As he is having significant neurologic decline and pain with inability ambulate I am recommending urgent decompression and fusion. Would require a lumbar decompression fusion addressing stenosis from L2-S1. Risk benefits pros cons and alternatives were outlined in detail. At this time he made n.p.o. after midnight we will plan for the OR in the a.m. Lumbar spinal stenosis - Surgery tomorrow as above GERD (gastroesophageal reflux disease) - Continue pantoprazole 40 mg p.o. twice daily Type 2 diabetes mellitus - HbA1c pending - Continue Lantus 5 units twice daily - NovoLog: Goal BSG Range: Low 110 mg/dL, High 140 mg/dL, Correction Factor: 45 mg/dL/unit, INS:CHO Ratio: 1unit per 15 gms CHO consumed - AM BMP Hypertension - Continue home lisinopril 20 mg p.o. daily, amlodipine 10 mg p.o. daily. Hyperlipidemia - Notable history of this from patient but not on statin - Follow-up as outpatient DVT prophylaxis: no pharmacoppx--low risk FENGI: Carb consistent/DM2, NPO at midnight Dispo: Med/Surg Code: Full Code (2) Lumbar spinal stenosis: (3) GERD (gastroesophageal reflux disease): (4) Type 2 diabetes mellitus: (5) Hypertension: Admission and Anticipated Discharge Date Admission Date: June 19, 2020 Supervising Physician Co-Signing Physician Notes I personally examined the patient and verified all chacon points of history and exam, discussed case, and agree with decision making with Dr Atwood. feeling ok on pain meds - help then wear off then things are bad again - but meds help enough for several hours. pleased with care thus far. for surgery tomorrow vitals noted nad heent nc at mmm breathing unlabored no accessory muscles good effort skin no rashes no pallor or icterus severe lumbar DJD/DDD and neurogenic claudication/intractable back pain - failing outpt / conservative management badly - agree w OR. appreciate ortho taking him promptly. continue pain control. nothing suggesting cauda equina at this time. otherwise as above, sugars reasonable, A1c pending. Subjective Patietn seen at bedside this AM. Doing overall well. Does feel he has pain in certain positions but feels the pain is well managed on medications. He reports that the pain is mainly in the right side of his lower back with radiation to buttocks and down to knees. Pain started around 1996--had previous surgery. Was already scheduled for surgery in July with Dr. Lombardo but the pain recently has been worse. Denies fever, chills, perianal numbness, urinary or bowel incontinence. Review of Systems Review of Systems: All systems reviewed & are unremarkable except as noted in Subjective Physical Exam Constitutional: WD/WN, vitals as above no acute distress Respiratory: normal respiratory effort, lungs clear to auscultation Cardiovascular: RRR, no murmur, no edema Heart Sounds: normal S1 and normal S2 Results & Data Results & Data ([facility]) Vital Signs (Past 12 Hours) Vital Signs Temp Pulse Resp BP Pulse Ox 06/20/20 07:34 36.7 C 79 16 155/79 H 99 06/19/20 23:31 36.8 C 86 15 131/88 98 Resident Activity Tracking Resident Involvement: Resident Care Provided Care Provided: Adult Hospital Medicine
[2020-06-20 10:26] LABS: Appearance Urine Clear (Clear); Bilirubin Urine Negative (Negative); Blood Urine Negative (Negative); Color Urine Dark Yellow; Glucose Urine UA 1+ (Negative); Ketones Urine Negative (Negative); Leukocyte Esterase Urine Negative (Negative); Nitrite Urine Negative (Negative); Protein Urine Negative (Negative); Specific Gravity Urine 1.033 (1.000-1.030); Urobilinogen Urine Negative (Negative)
--- NOTE | 2020-06-20 16:00 | Billing Data ---
Date of Service June 20, 2020 Coding Level of Care Code 08816 Subseq Hosp Care Lvl 2
[2020-06-20] MEDS: SENNA 8.6 MG TAB PO SCH (21:13)
[2020-06-20] MEDS ORDERED: Nursing to Pharmacy Communication SCH (23:15)
[2020-06-21] MEDS: HYDROmorphone INJ 0.5 MG/0.5 ML SYR IV PRN ×3 (00:35→07:59)
[2020-06-21] MEDS: INSULIN ASPART 100 UNITS/ML 3 ML PEN SC SCH ×4 (00:44→20:58)
[2020-06-21 06:02] LABS: Estimated Average Glucose 137 mg/dl; Hemoglobin A1C 6.4 % (4.5-5.6)
--- NOTE | 2020-06-21 07:30 | History & Physical Bridge Note ---
Date of Service June 21, 2020 History & Physical Bridge Note I have examined the patient, reviewed the History & Physical and in the interval since the performance of the History & Physical I have noted the following changes of clinical significance: no changes noted Lumbar decompression fusion L2-S1
[2020-06-21] MEDS ORDERED: ceFAZolin 2000MG 2,000 MG/15 ML SYR IV ONE (07:47)
[2020-06-21] MEDS ORDERED: MIDAZOLAM HCL 1 MG/ML 2ML VIAL ONE (07:47)
[2020-06-21] MEDS ORDERED: fentaNYL citrate 100 MCG/2 ML VIAL ONE ×2 (07:47→09:04)
[2020-06-21] MEDS ORDERED: ceFAZolin 2,000 MG/15 ML IV PUSH IV ONE (07:49)
[2020-06-21] MEDS ORDERED: LIDOCAINE HCL 2% 2 ML VIAL/AMP(20MG/ML) INFIL ONE (07:53)
[2020-06-21] MEDS ORDERED: PROPOFOL IV EMULSION 10 MG/ML 20 ML VIAL IV ONE ×2 (07:53→09:14)
[2020-06-21] MEDS: LIDOCAINE 5% 1 PATCH TD SCH (07:53)
[2020-06-21] MEDS ORDERED: ONDANSETRON INJ 2 MG/ML 2 ML VIAL ONE (07:53)
[2020-06-21] MEDS ORDERED: DEXAMETHASONE SOD INJ 4 MG/ML VIAL ONE (07:53)
[2020-06-21] MEDS ORDERED: ROCURONIUM BROMIDE 10 MG/ML 5 ML VIAL IV ONE ×3 (07:53→09:34)
[2020-06-21] MEDS ORDERED: BACITRACIN INJ 50,000 UNIT VIAL ONE (07:54)
[2020-06-21] MEDS ORDERED: BUPIVACAINE/EPINEPHRINE 0.5% MPF 1:200,000 30 ML VIAL ONE (07:54)
[2020-06-21] MEDS ORDERED: ATROPINE SULFATE 0.1 MG/ML 10ML SYR IV PRN ×2 (08:10→12:40)
[2020-06-21] MEDS ORDERED: ePHEDrine sulfate 50 MG/ML AMP IV PRN ×2 (08:10→12:40)
--- NOTE | 2020-06-21 08:22 | Anesthesiology Consultation ---
Date of Service June 21, 2020 Assessment & Plan Chart Review Chart Review: Acceptable Risk for Surgery and Patient NOT seen in Pre Admission Testing Consults Requested none ASA ASA3 Proposed Anesthesia Anesthesia Type: General Anesthesia Line Insertion: Arterial line Additional Comments: covid test negative History Surgery Operation Date: 06/21/20 07:00 Proposed Procedures p Decompression and Fusion L2 - S1 - Long Lombardo DO Height/Weight Height: 5 ft 10 in Weight: 97.7 kg Allergies Allergy/AdvReac Type Severity Reaction Status Date / Time No Known Allergies Allergy Unverified 12/13/17 07:12 Medications Home Medications Medication Instructions Recorded Confirmed Last Taken docusate sodium [Colace] 100 mg PO BID #60 cap 06/18/20 06/19/20 Unknown lidocaine [Lidoderm] 1 patch TOPICAL DAILY #15 ea 06/18/20 06/19/20 Unknown oxycodone 5 mg PO Q6H PRN #14 tab 06/18/20 06/19/20 Unknown sennosides [Senokot] 8.6 mg PO HS #30 tab 06/18/20 06/19/20 Unknown amlodipine 10 mg PO DAILY 06/19/20 06/19/20 Unknown gabapentin 300 mg PO DIRECTED 06/19/20 06/19/20 Unknown lisinopril 20 mg PO DAILY 06/19/20 06/19/20 Unknown metformin 500 mg PO TID 06/19/20 06/19/20 Unknown pantoprazole 40 mg PO BID 06/19/20 06/19/20 Unknown tramadol 50 mg PO Q6 06/19/20 06/19/20 Unknown Active Medications Generic Name Dose Route Start Last Admin Trade Name Joy PRN Reason Stop Dose Admin Acetaminophen 1,000 mg 06/19/20 21:00 06/20/20 21:13 Acetaminophen 500 Mg Tab PO 07/19/20 20:59 1,000 mg TID JAHAIRA Administration Amlodipine Besylate 10 mg 06/20/20 09:00 06/20/20 09:34 Amlodipine Besylate 5 Mg Tab PO 07/20/20 08:59 10 mg DAILY JAHAIRA Administration Docusate Sodium 100 mg 06/19/20 21:00 06/20/20 21:13 Docusate Sodium 100 Mg Cap PO 07/19/20 20:59 100 mg BID JAHAIRA Administration Gabapentin 300 mg 06/19/20 21:00 06/20/20 21:13 Gabapentin 300 Mg Cap PO 07/19/20 20:59 300 mg TID JAHAIRA Administration Hydromorphone HCl 0.5 mg 06/19/20 18:51 06/21/20 07:59 Hydromorphone Inj 0.5 Mg/0.5 Ml Syr IV 07/03/20 18:50 0.5 mg Q2H PRN Administration Pain Insulin Aspart 0 units 06/21/20 00:00 06/21/20 06:29 Insulin Aspart 100 Units/Ml 3 Ml Pen SC 07/21/20 00:00 Not Given Q6 JAHAIRA Insulin Glargine 5 units 06/19/20 21:00 06/20/20 21:22 Insulin Glargine Solostar 100 Units/Ml 3 Ml Pen SC 07/19/20 20:59 5 units BID JAHAIRA Administration Lidocaine 1 patch 06/20/20 09:00 06/21/20 07:53 Lidocaine 5% 1 Patch TD 07/20/20 08:59 1 patch QAM JAHAIRA Administration Lisinopril 20 mg 06/20/20 09:00 06/20/20 09:35 Lisinopril 20 Mg Tab PO 07/20/20 08:59 20 mg DAILY JAHAIRA Administration Miscellaneous 1 ea 06/19/20 21:00 06/20/20 21:14 Remove Lidoderm Patch N/A 07/19/20 20:59 1 ea DAILY@2100 JAHAIRA Administration Oxycodone HCl 5 - 10 mg 06/19/20 21:14 06/20/20 22:26 Oxycodone Hcl Ir 5 Mg Tab (Immediate Release) PO 07/03/20 21:13 10 mg Q4H PRN Administration Pain Pantoprazole Sodium 40 mg 06/19/20 21:00 06/20/20 21:13 Pantoprazole 40 Mg Tab PO 07/19/20 20:59 40 mg BID JAHAIRA Administration Sennosides 8.6 mg 06/19/20 21:00 06/20/20 21:13 Senna 8.6 Mg Tab PO 07/19/20 20:59 8.6 mg HS JAHAIRA Administration NPO Date Last Intake of Fluids: 06/20/20 Time Last Intake of Fluids: 23:59 Date Last Intake of Solids: 06/20/20 Time Last Intake of Solids: 23:59 Past Medical History Medical History GERD (gastroesophageal reflux disease) Hyperlipidemia Hypertension Lumbar spinal stenosis Type 2 diabetes mellitus Exercise / Class Metabolic Activity III < 4 Walking/Shop/Light housework Past Surgical History Surgical History History of back surgery L5 discectomy 1997 Past Anesthesia History No Hx of Anesthesia Complications and No Family Hx of Anesthesia Complications History of PONV No Hx of PONV and No Hx of Motion Sickness Social History Smoking Status: Never smoker Hx Alcohol Use: No Hx Substance Use: No Physical Exam Vital Signs Last Vital Signs Temp 36.6 C 06/21/20 07:34 Pulse 68 06/21/20 07:34 Resp 16 06/21/20 07:34 BP 137/84 06/21/20 07:34 Pulse Ox 97 06/21/20 07:34 Constitutional + obese ENMT Mouth: + dentition abnormality and + chipped teeth Thyromental Distance: > or= 3.5 Finger Breadths Mallampati Class: II Neck normal visual inspection, trachea midline and + facial hair; neck extension not limited Respiratory normal respiratory effort Auscultation: lungs clear to auscultation bilaterally Cardiovascular Rate/Rhythm: regular rate and regular rhythm Heart Sounds: no murmur Vessels: no carotid bruit Musculoskeletal Spine: normal cervical ROM Extremities: extremities normal to inspection Neurologic moves all extremities Motor/Sensory: no sensory deficit Psychiatric Orientation: alert and oriented x 3 Testing Laboratory Results 06/19/20 12:29 06/19/20 12:29 Hemoglobin A1c 6.4 % (4.5-5.6) H 06/20/20 05:29 Urine Color Dark Yellow 06/20/20 Unknown Urine Appearance Clear (Clear) 06/20/20 Unknown Urine pH 5.0 (4.5-7.5) 06/20/20 Unknown Ur Specific [place] 1.033 (1.000-1.030) H 06/20/20 Unknown Urine Protein Negative (Negative) 06/20/20 Unknown Urine Glucose (UA) 1+ (Negative) H 06/20/20 Unknown Urine Ketones Negative (Negative) 06/20/20 Unknown Urine Nitrite Negative (Negative) 06/20/20 Unknown Ur Leukocyte Esterase Negative (Negative) 06/20/20 Unknown 11/06/21/20 06/20/20 06:06 00:06 20:42 POC Glucose 120 H 118 H 148 H
[2020-06-21] MEDS ORDERED: SODIUM CHLORIDE 0.9% 250 ML IV PRN (08:47)
[2020-06-21] MEDS ORDERED: HYDROmorphone INJ 2 MG/ML SYR/VIAL ONE (09:20)
[2020-06-21] MEDS ORDERED: PHENYLEPHRINE 100MCG/ML 5ML SYR ONE (09:33)
[2020-06-21] MEDS ORDERED: PHENYLEPHRINE HCL 10 MG/ML VIAL ONE (09:47)
--- NOTE | 2020-06-21 11:09 | Electrocardiogram Report ---
Test Reason : Blood Pressure : / mmHG Vent. Rate : 080 BPM Atrial Rate : 080 BPM P-R Int : 158 ms QRS Dur : 106 ms QT Int : 360 ms P-R-T Axes : 012 -55 071 degrees QTc Int : 415 ms Sinus rhythm with Fusion complexes Left anterior fascicular block Abnormal ECG Reconfirmed by Kelechi Andres ([id number]) on 06/21/2020 11:10:00 AM Referred By: REFERRED SELF Confirmed By:Loi Andres
[2020-06-21] MEDS: ACETAMINOPHEN 500 MG TAB PO SCH ×3 (11:46→21:01)
[2020-06-21] MEDS ORDERED: FLOSEAL HEMOSTATIC MATRIX 10ML TOP ONE (12:03)
--- NOTE | 2020-06-21 12:17 | Operative Report ---
Post Operative Report Pre & Post Diagnosis Operation Date: 06/21/20 07:00 Pre-Op Diagnosis: Lumbar spinal stenosis with neurogenic claudication Herniated pulposis L3-L4 with foraminal encroachment on the right Spondylolisthesis L3-L4 Post-Op Diagnosis: Same I identified the patient and participated in the time-out.: Yes Procedure Operation Date: 06/21/20 07:00 Actual Procedures #1 lumbar decompression with bilateral medial facetectomies and foraminotomies L2-3 L3-4 and L4-5. #2 posterior spinal fusion L2-3 L3-4 L4-5 and L5-S1. #3 placement posterior segmental instrumentation L2-S1. #4 interbody fusion L3-4 L4-5. #5 placement peek cage 13 x 26 mm at L3-4 and L4-5. #6 placement locally harvested morselized autograft in the posterior lateral gutters. #7 placement infuse collagen sponge, master graft in the posterior lateral gutters and ostial amp interbody space. Surgeon Long Lombardo, Housing And Residence Life Director Shelia Dhillon Estimated Blood Loss 400 Findings Consistent with Post-Op Diagnosis Specimens None Indications This is a 65-year-old male well-known to me the presents with marked decline in status with the past several days incapacitating to pain inability to stand and ambulate. Subsequently is here for urgent decompression fusion. Description of Procedure Patient was met with identified informed consent obtained. Patient was then taken to the operative suite underwent an patient placed in a prone position the Timoteo table on top of the Rick frame. All bony prominences well-padded eyes inspected to ensure no external pressure placed upon them. This point the lumbar spine was prepped and draped in a sterile fashion. Sharp dissection with the assistance of Bovie cautery was performed down to and exposing the lamina and transverse processes of L to L3-L4-L5 and the sacral ala bilaterally. From caudal to cephalad fashion complete laminectomy of L L4 L3 and L2 was performed including bilateral medial facetectomies and foraminotomies addressing severe spinal stenosis. Pedicle screws then placed in L to L3-L4-L5 and S1 levels bilaterally with assistance of fluoroscopy and the proper sized evette placed. By way of a transforamen approach on right a complete discectomy of L4-5 was performed endplates curetted to subcortical bleeding bone and a 13 x 26 mm peek cage filled with osteobone graft tapped in position. Then proceeded L3-4 and he identified a massive far lateral disc herniation occupying the foramen. This was removed in its entirety. I then performed a complete discectomy through a transfemoral approach on the right endplates curetted to subcortical and bone and again a 13 x 26 mm peek cage filled osteobone graft tapped in position. The rods were then locked in final position bilaterally. The transverse processes of L to L3-L4-L5 and the sacral ala burred to subcortical bleeding bone. Infuse collagen sponge master graft local autograft was placed in the posterior gutters. 15 round DOTTY drain inserted. The incision was then closed with 1 Vicryl in the fascia 2-0 Vicryl subcutaneously and 4 Monocryl for final skin corona sure. Steri-Strip sterile dressings placed. Patient will continue PACU stable condition. Please note spinal cord monitoring was utilized at the procedure no changes noted. Lastly Shelia Dhillon was present at the entire surgery involved in patient positioning complex portions of the surgery and final skin closure. I attest to the content of the Intraoperative Record and any orders documented therein. Any exceptions are noted below.
[2020-06-21] MEDS ORDERED: NEOSTIGMINE METHYLSULFATE 1 MG/ML 10ML VIAL ONE (12:19)
[2020-06-21] MEDS ORDERED: GLYCOPYRROLATE 0.2 MG/ML VIAL ONE (12:19)
--- NOTE | 2020-06-21 12:26 | Fluoroscopy Report ---
INTRAOPERATIVE RADIOGRAPHS CLINICAL HISTORY: L2-S1 spinal fusion. Fluoroscopy time: 34 seconds. FINDINGS: 3 spot fluoroscopic views of the lumbar spine are presented. Discectomy change is seen at L 3-L4 and L4-L5. There has been laminectomy and posterior fusion from L2-S1. Interpedicular screws are present at all levels. The orthopedic hardware appears intact. IMPRESSION: Intraoperative images from L2-S1 spinal fusion as above. Electronically signed by: Ravindra Hernandez M.D. 06/21/2020 12:25 PM
[2020-06-21] MEDS ORDERED: HYDROmorphone INJ 1 MG/ML SYRINGE IV PRN ×2 (12:40→13:35)
[2020-06-21] MEDS ORDERED: NALOXONE HCL 0.4 MG/1 ML VIAL/CARP IV PRN ×2 (12:40→13:35)
[2020-06-21] MEDS ORDERED: PROMETHAZINE HCL 12.5 MG in SODIUM CHLORIDE 0.9% 50 ML IV PRN ×2 (12:40→13:35)
[2020-06-21] MEDS ORDERED: ONDANSETRON INJ 2 MG/ML 2 ML VIAL IV PRN ×2 (12:40→13:35)
[2020-06-21] MEDS ORDERED: FLUMAZENIL 0.1 MG/1 ML 10 ML VIAL IV PRN (12:40)
[2020-06-21] MEDS ORDERED: fentaNYL citrate 100 MCG/2 ML VIAL IV PRN (12:40)
[2020-06-21] MEDS ORDERED: LABETALOL HCL IV 5 MG/ML 20ML IV PRN (12:40)
[2020-06-21 13:11] LABS: Hematocrit (blood only) 41.1 % (42-52)
--- NOTE | 2020-06-21 13:16 | Anesthesiology Progress Note ---
Date of Service June 21, 2020 Anesthesia Post Procedure Vital Signs Vital Signs: Temp Pulse Pulse Resp BP BP Pulse Ox 06/21/20 13:10 66 15 118/64 99 06/21/20 13:00 70 13 108/87 99 06/21/20 12:50 72 12 117/83 100 06/21/20 12:40 69 16 121/77 100 06/21/20 12:34 36.3 C L 77 12 134/92 100 06/21/20 08:09 36.6 C 82 20 164/98 H 99 06/21/20 07:34 36.6 C 68 16 137/84 97 06/20/20 23:35 144/88 H 06/20/20 22:19 36.6 C 67 16 152/96 H 99 06/20/20 15:14 36.8 C 75 16 145/79 H 99 Pain Intensity Medial Back: Pain Intensity: 6 Transfer of Care Handoff Completed per policy Notes Mental Status: alert / awake / arousable Patient Amnestic to Procedure: Yes Nausea / Vomiting: adequately controlled Pain: adequately controlled Airway Patency, RR, SpO2: stable & adequate BP & HR: stable & adequate Hydration State: stable & adequate Anesthetic Complications: no major complications apparent
[2020-06-21] MEDS ORDERED: ACETAMINOPHEN 1,000 MG/100 ML VIAL IV PRN (13:35)
[2020-06-21] MEDS ORDERED: diphenhydrAMINE Capsule 25 MG CAP PO PRN (13:35)
[2020-06-21] MEDS ORDERED: SOD PHOSPHATE/SOD BIPHOSPHATE ENEMA 132 ML BTL PR PRN (13:35)
[2020-06-21] MEDS ORDERED: traMADol HCL 50 MG TABLET PO PRN (13:35)
[2020-06-21] MEDS ORDERED: METOCLOPRAMIDE HCL INJ 5 MG/ML 2 ML VIAL IV PRN (13:35)
[2020-06-21] MEDS ORDERED: LORazepam 0.5 MG/1 ML VIAL IV PRN (13:35)
[2020-06-21] MEDS ORDERED: MAGNESIUM HYDROXIDE SUSP 30 ML UDC PO PRN (13:35)
[2020-06-21] MEDS ORDERED: ONDANSETRON 4 MG OD TAB PO PRN (13:35)
[2020-06-21] MEDS ORDERED: HYDROmorphone INJ 0.5 MG/0.5 ML SYR IV PRN (13:35)
[2020-06-21] MEDS ORDERED: ACETAMINOPHEN 500 MG TAB PO PRN (13:35)
[2020-06-21] MEDS ORDERED: LORazepam 0.5 MG TAB PO PRN (13:35)
[2020-06-21] MEDS ORDERED: bisacodyL 10 MG SUPP PR PRN (13:35)
[2020-06-21] MEDS ORDERED: FAMOTIDINE 20 MG TAB PO PRN (13:35)
[2020-06-21] MEDS ORDERED: DO NOT ADMINISTER PNEUMOCOCCAL VACCINE PRN (13:35)
[2020-06-21] MEDS ORDERED: DO NOT ADMINISTER FLU VACCINE PRN (13:35)
[2020-06-21] MEDS ORDERED: hydrOXYzine HCl 25 MG TAB PO PRN (13:35)
[2020-06-21] MEDS ORDERED: ALUMINUM/MAGNESIUM SUSP 30 ML UDC PO PRN (13:35)
[2020-06-21] MEDS ORDERED: Nursing to Pharmacy Communication SCH (14:00)
[2020-06-21] MEDS: INSULIN GLARGINE SOLOSTAR 100 UNITS/ML 3 ML PEN SC SCH ×2 (14:04→20:57)
[2020-06-21] MEDS: GABAPENTIN 300 MG CAP PO SCH ×3 (14:04→20:58)
[2020-06-21] MEDS: amLODIPine BESYLATE 5 MG TAB PO SCH (14:18)
[2020-06-21] MEDS: PANTOprazole 40 MG TAB PO SCH ×2 (14:19→21:00)
[2020-06-21] MEDS: lisinopril 20 MG TAB PO SCH (14:20)
[2020-06-21] MEDS: SODIUM CHLORIDE 0.9% 1000ML 1,000 ML IV SCH (14:20)
[2020-06-21] MEDS: oxyCODONE HCL IR 5 MG TAB (IMMEDIATE RELEASE) PO PRN (14:24)
[2020-06-21] MEDS: KETOROLAC TROMETHAMINE 15 MG/ML VIAL IV SCH ×2 (17:03→23:13)
[2020-06-21] MEDS: ceFAZolin 2000MG 2,000 MG/15 ML SYR IV SCH ×2 (17:03→23:11)
--- NOTE | 2020-06-21 18:55 | Hospitalist Progress Note ---
Date of Service June 21, 2020 Assessment & Plan (1) Intractable low back pain: Intractable low back pain - Prior to surgery, pain management with: Acetaminophen 1g TID, Gabapentin 300mg PO TID, Lidocaine patch, Oxycodone 5-10mg PO Q4H PRN, and Dilaudid for break through pain - No further steroids or NSAIDs per Dr Lombardo's recommendations as surgery potentially planned for Thursday 06/21 - Preop EKG ordered - CXR negative - Lumbar spine CT: Multilevel discogenic degeneration with ligamentum flavum thickening and facet arthrosis redemonstrated which again results in severe multilevel central canal stenosis with multilevel foraminal narrowing. Findings appear similar to the 02/26/2020 MRI lumbar spine. Lumbar dextroscoliosis. - Venous Doppler: No sonographic evidence of deep venous thrombosis - Ortho consult: As he is having significant neurologic decline and pain with inability ambulate I am recommending urgent decompression and fusion. Would require a lumbar decompression fusion addressing stenosis from L2-S1. Risk benefits pros cons and alternatives were outlined in detail. At this time he made n.p.o. after midnight we will plan for the OR in the a.m. - Ortho surgery 06/21/20 -- see ortho op report for further details - Post op pain management per ortho Lumbar spinal stenosis - Surgery 06/21 as noted above GERD (gastroesophageal reflux disease) - Continue pantoprazole 40 mg p.o. twice daily Type 2 diabetes mellitus - HbA1c 6.4% on 06/20/20 - Continue Lantus 5 units twice daily - NovoLog: Goal BSG Range: Low 110 mg/dL, High 140 mg/dL, Correction Factor: 45 mg/dL/unit, INS:CHO Ratio: 1unit per 15 gms CHO consumed - AM BMP Hypertension - Continue home lisinopril 20 mg p.o. daily, amlodipine 10 mg p.o. daily. Hyperlipidemia - Notable history of this from patient but not on statin - Follow-up as outpatient DVT prophylaxis: SCDs FENGI: Carb consistent/DM2 Dispo: Med/Surg Code: Full Code (2) Lumbar spinal stenosis: (3) GERD (gastroesophageal reflux disease): (4) Type 2 diabetes mellitus: (5) Hypertension: Admission and Anticipated Discharge Date Admission Date: June 19, 2020 Supervising Physician Co-Signing Physician Notes Patient seen and examined with PGY-1 Dr. Lobato. Agree with history, exam findings, assessment and plan of care as outlined. 65 year old male with long history of back pain admitted with intractable low back pain. Now s/p lumbar fusion and decompression with Dr. Lombardo. Pain is improved today after surgical intervention. Drains are in tact. Lower extremity strength and sensation in tact. 1. Lumbar spinal stenosis with neurogenic claudication. Lumbar CT with severe multilevel central canal stenosis and multilevel foraminal narrowing. Similar to MRI done in February. Continue Tylenol, gabapentin 300mg TID. Post-operative pain management per surgical team. 2. GERD. Continue home PPI. 3. DM2. A1C 6.3. Currently on lantus 5u BID with bolus correction factor 1: 15. At home is on metformin 500mg TID. 4. HTN. Continue home Lisinopril 20mg, amlodipine 10mg. 5. Hyperlipidemia. Not on statin. Dipso: pending clinical improvement and rec from ortho to be discharged home. Subjective Patient seen and evaluated at bedside this afternoon after returning from surgery with Dr. Lombardo; surgeries performed include lumbar decompression with bilateral medial facetectomies and foraminotomies, posterior spinal fusion, placement posterior segmental instrumentation, interbody fusion, placement peek cage, placement locally harvested morselized autograft in the posterior lateral gutters, and placement infuse collagen sponge, master graft in the posterior lateral gutters and ostial amp interbody space (see more details from Dr. Lombardo's operative report). At time of evaluation, patient is very happy and he states that he "feels fantastic." He has no specific concerns or questions at this time. Patient states that he did eat lunch just prior to my evaluation and he tolerated this meal without difficulty, nausea, or vomiting. Patient denies CP, SOB, abdominal pain, leg pain, leg swelling, numbness, or tingling. Review of Systems Constitutional: no fever and no chills Respiratory: no cough and no dyspnea Cardiovascular: no chest pain Gastrointestinal: no abdominal pain, no nausea and no vomiting Musculoskeletal: no back pain, no swelling and no muscle weakness Physical Exam Physical Exam: GENERAL: No acute distress. Well developed and well nourished. Vital signs reviewed as above. A/O x3. EYES: EOMI. Anicteric sclerae. HENT: Moist mucous membranes. RESPIRATORY: Clear to auscultation bilaterally. No wheezing, rales, or rhonchi. CARDIOVASCULAR: Regular rate and rhythm. 2/6 LIU. ABDOMEN: Soft, non-tender and non-distended. No palpable masses. Normal bowel sounds. EXTREMITIES: No edema. Non-tender. BLE SCDs in place. PSYCHIATRIC: Cooperative. Appropriate mood and affect. Results & Data Results & Data ([facility]) Vital Signs (Past 12 Hours) Vital Signs Temp Pulse Pulse Resp BP BP Pulse Ox 06/21/20 16:29 36.7 C 95 H 16 112/78 94 06/21/20 15:32 36.8 C 97 H 18 115/76 95 06/21/20 14:30 105 H 16 106/77 98 06/21/20 14:00 36.7 C 88 15 116/75 100 06/21/20 13:30 36.6 C 71 16 124/82 100 06/21/20 13:20 36.6 C 85 16 122/81 99 06/21/20 13:10 66 15 118/64 99 06/21/20 13:00 70 13 108/87 99 06/21/20 12:50 72 12 117/83 100 06/21/20 12:40 69 16 121/77 100 06/21/20 12:34 36.3 C L 77 12 134/92 100 06/21/20 08:09 36.6 C 82 20 164/98 H 99 06/21/20 07:34 36.6 C 68 16 137/84 97 Resident Activity Tracking Resident Involvement: Resident Care Provided Care Provided: Adult Hospital Medicine
[2020-06-21] MEDS: DOCUSATE SODIUM/SENNA 50/8.6MG TAB PO SCH (21:01)
[2020-06-21] MEDS: SENNA 8.6 MG TAB PO SCH (21:02)
[2020-06-22] MEDS: SODIUM CHLORIDE 0.9% 1000ML 1,000 ML IV SCH ×2 (00:35→10:29)
[2020-06-22] MEDS: POLYETHYLENE (MIRALAX) 17 GM PACK PO SCH ×4 (05:25→23:51)
[2020-06-22] MEDS: KETOROLAC TROMETHAMINE 15 MG/ML VIAL IV SCH ×2 (05:26→12:40)
[2020-06-22 06:16] LABS: Basophils # (auto) 0.01 K/uL (0-0.2); Basophils % (auto) 0.1 %; Eosinophils # (auto) 0.01 K/uL (0-0.5); Eosinophils % (auto) 0.1 %; Hemoglobin 11.8 g/dL (14.0-18.0); Immature Granulocytes # (auto) 0.03 K/uL (0.00-0.02); Immature Granulocytes % (auto) 0.2 %; Lymphocytes # (auto) 2.43 K/uL (1.2-3.4); Lymphocytes % (auto) 16.3 %; Mean Corpuscular Hemoglobin 31.6 pg (25-34); Mean Corpuscular Hgb Conc 33.7 g/dL (32-36); Mean Corpuscular Volume 93.8 fL (80-100); Mean Platelet Volume 10.7 fL (7.4-10.4); Monocytes # (auto) 1.71 K/uL (0.11-0.59); Monocytes % (auto) 11.5 %; Neutrophils # (auto) 10.73 K/uL (1.4-6.5); Neutrophils % (auto) 71.8 %; Platelet Count 222 K/uL (130-400); RDW Coefficient of Variation 14.3 % (11.5-14.5); RDW Standard Deviation 49.2 fL (36.4-46.3); Red Blood Count 3.73 M/uL (4.7-6.1); White Blood Count 14.92 K/uL (4.8-10.8)
[2020-06-22 06:40] LABS: BUN Creatinine Ratio 27.3 (10-20); Calcium 8.1 mg/dl (8.5-10.1); Est GFR (African American) 86.9; Potassium 4.2 mmol/L (3.5-5.1)
--- NOTE | 2020-06-22 09:10 | Orthopedic Progress Note ---
Date of Service June 22, 2020 Assessment & Plan (1) Neurogenic claudication due to lumbar spinal stenosis: Admission and Anticipated Discharge Date Admission Date: June 19, 2020 Patient is in proved dramatically from a pain standpoint. We will continue with physical therapy today. Monitor DOTTY output. Hopefully discharge home the next few days. Subjective Back pain controlled leg pain improved Physical Exam Physical Exam: Patient appears comfortable. He has good strength testing. Results & Data ([facility]) Vital Signs (Past 12 Hours) Vital Signs Temp Pulse Resp BP BP Pulse Ox 06/22/20 07:16 36.6 C 83 18 93/61 L 97 06/22/20 03:36 36.6 C 87 18 106/72 99 06/21/20 22:35 37 C 104 H 16 111/64 95
[2020-06-22] MEDS: LIDOCAINE 5% 1 PATCH TD SCH (09:57)
[2020-06-22] MEDS: PANTOprazole 40 MG TAB PO SCH ×2 (09:58→21:52)
[2020-06-22] MEDS: GABAPENTIN 300 MG CAP PO SCH ×3 (09:58→21:52)
[2020-06-22] MEDS: amLODIPine BESYLATE 5 MG TAB PO SCH (09:58)
[2020-06-22] MEDS: INSULIN GLARGINE SOLOSTAR 100 UNITS/ML 3 ML PEN SC SCH ×2 (09:58→21:49)
[2020-06-22] MEDS: ACETAMINOPHEN 500 MG TAB PO SCH ×3 (09:58→21:52)
[2020-06-22] MEDS: lisinopril 20 MG TAB PO SCH (09:58)
[2020-06-22] MEDS: INSULIN ASPART 100 UNITS/ML 3 ML PEN SC SCH ×5 (09:59→21:51)
--- NOTE | 2020-06-22 17:58 | Hospitalist Progress Note ---
Date of Service June 22, 2020 Assessment & Plan (1) Intractable low back pain: Lumbar spinal stenosis with neurogenic claudication - Prior to surgery, pain management with: Acetaminophen 1g TID, Gabapentin 300mg PO TID, Lidocaine patch, Oxycodone 5-10mg PO Q4H PRN, and Dilaudid for breakthrough pain - No further steroids or NSAIDs per Dr Lombardo's recommendations as surgery potentially planned for Thursday 06/21 - Preop EKG ordered - CXR negative - Lumbar spine CT: Multilevel discogenic degeneration with ligamentum flavum thickening and facet arthrosis redemonstrated which again results in severe multilevel central canal stenosis with multilevel foraminal narrowing. Findings appear similar to the 02/26/2020 MRI lumbar spine. Lumbar dextroscoliosis. - Venous Doppler: No sonographic evidence of deep venous thrombosis - Ortho consult: As he is having significant neurologic decline and pain with inability ambulate I am recommending urgent decompression and fusion. Would require a lumbar decompression fusion addressing stenosis from L2-S1. Risk benefits pros cons and alternatives were outlined in detail. At this time he made n.p.o. after midnight we will plan for the OR in the a.m. - Ortho surgery 06/21/20 -- see ortho op report for further details - Post op pain management per ortho surgical team GERD (gastroesophageal reflux disease) - Continue pantoprazole 40 mg p.o. twice daily Type 2 diabetes mellitus - HbA1c 6.4% on 06/20/20 - Continue Lantus 5 units twice daily - NovoLog: Goal BSG Range: Low 110 mg/dL, High 140 mg/dL, Correction Factor: 45 mg/dL/unit, INS:CHO Ratio: 1unit per 15 gms CHO consumed - AM BMP Hypertension - Continue home lisinopril 20 mg p.o. daily, amlodipine 10 mg p.o. daily. Hyperlipidemia - Notable history of this from patient but not on statin - Follow-up as outpatient DVT prophylaxis: SCDs FENGI: Carb consistent/DM2 Dispo: Med/Surg Code: Full Code (2) Lumbar spinal stenosis: (3) GERD (gastroesophageal reflux disease): (4) Type 2 diabetes mellitus: (5) Hypertension: Admission and Anticipated Discharge Date Admission Date: June 19, 2020 Supervising Physician Co-Signing Physician Notes Patient seen and examined with PGY-1 Dr. Lobato. Agree with history, exam findings, assessment and plan of care as outlined. 65 year old male with long history of back pain admitted with intractable low back pain. Now s/p lumbar fusion and decompression with Dr. Lombardo on Sunday, Jun 21. Reports that his pain is much better. He has not required any dilaudid. Feels that post-operative pain is being adequately treated with Tylenol. Drain in tact, sero sang drainage. Lower extremity strength and sensation in tact. 1. Lumbar spinal stenosis with neurogenic claudication. Now s/p lumbar decompression and fusion. Post-operative pain management per surgical team. 2. GERD. Continue home PPI. 3. DM2. A1C 6.3. Currently on lantus 5u BID with bolus correction factor 1: 15. At home is on metformin 500mg TID. 4. HTN. Continue home Lisinopril 20mg, amlodipine 10mg. 5. Hyperlipidemia. Not on statin. Dipso: discharge pending ortho spine recommendations. Subjective Patient seen and evaluated in room; he was sitting in the chair at bedside. Patient states that he is doing very well. He does report mild pain associated with the back surgery but states that it is "10x better than prior to the surgery." Patient has no acute complaints or concerns today. He states that he has advanced to a full diet and he is tolerating this well without nausea or vomiting. Review of Systems Constitutional: no fever and no chills Respiratory: no cough and no dyspnea Cardiovascular: no chest pain Gastrointestinal: no abdominal pain, no nausea and no vomiting Musculoskeletal: + back pain Neurologic: no paralysis, no tingling and no numbness Physical Exam 2 Physical Exam: GENERAL: No acute distress. Well developed and well nourished. Vital signs reviewed as above. A/O x3. EYES: EOMI. Anicteric sclerae. HENT: Moist mucous membranes. RESPIRATORY: Clear to auscultation bilaterally. No wheezing, rales, or rhonchi. CARDIOVASCULAR: Regular rate and rhythm. 2/6 LIU. ABDOMEN: Soft, non-tender and non-distended. No palpable masses. Normal bowel sounds. EXTREMITIES: No edema. Non-tender. 5/5 strength in knee flexion and extension. 5/5 pleating supervisor strength. NEURO: Normal sensation to feet bilaterally to light touch. PSYCHIATRIC: Cooperative. Appropriate mood and affect. Results & Data Results & Data ([facility]) Vital Signs (Past 12 Hours) Vital Signs Temp Pulse Resp BP Pulse Ox 06/22/20 15:41 36.7 C 96 H 17 94/70 L 94 06/22/20 07:16 36.6 C 83 18 93/61 L 97 Resident Activity Tracking Resident Involvement: Resident Care Provided Care Provided: Adult Hospital Medicine
[2020-06-22] MEDS: DOCUSATE SODIUM 100 MG CAP PO SCH (18:12)
[2020-06-22] MEDS: DOCUSATE SODIUM/SENNA 50/8.6MG TAB PO SCH (21:52)
[2020-06-23] MEDS: POLYETHYLENE (MIRALAX) 17 GM PACK PO SCH (05:17)
[2020-06-23] MEDS: oxyCODONE HCL IR 5 MG TAB (IMMEDIATE RELEASE) PO PRN ×3 (07:52→22:21)
[2020-06-23] MEDS: DEXAMETHASONE SOD PHOSPHATE 8 MG in SYRINGE 0 ML IV SCH (08:35)
[2020-06-23] MEDS: PANTOprazole 40 MG TAB PO SCH ×2 (08:36→22:07)
[2020-06-23] MEDS: ACETAMINOPHEN 500 MG TAB PO SCH ×3 (08:36→22:06)
[2020-06-23] MEDS: GABAPENTIN 300 MG CAP PO SCH ×3 (08:36→22:07)
[2020-06-23] MEDS: lisinopril 20 MG TAB PO SCH (08:37)
[2020-06-23] MEDS: LIDOCAINE 5% 1 PATCH TD SCH (08:37)
[2020-06-23] MEDS: amLODIPine BESYLATE 5 MG TAB PO SCH (08:37)
[2020-06-23] MEDS: INSULIN GLARGINE SOLOSTAR 100 UNITS/ML 3 ML PEN SC SCH ×2 (08:40→21:53)
[2020-06-23] MEDS: INSULIN ASPART 100 UNITS/ML 3 ML PEN SC SCH ×4 (08:40→21:54)
[2020-06-23] MEDS ORDERED: DEXAMETHASONE SOD PHOSPHATE 8 MG in SYRINGE 0 ML IV STA (10:46)
--- NOTE | 2020-06-23 10:47 | Orthopedic Progress Note ---
Date of Service June 23, 2020 Assessment & Plan (1) Neurogenic claudication due to lumbar spinal stenosis: Admission and Anticipated Discharge Date Admission Date: June 19, 2020 This we will continue physical therapy monitor his DOTTY output anticipate disch arge home tomorrow. Subjective Back pain more intense today leg pain improved. Physical Exam Physical Exam: Patient is good strength testing. Results & Data ([facility]) Vital Signs (Past 12 Hours) Vital Signs Temp Pulse Resp BP Pulse Ox 06/23/20 05:11 36.8 C 84 19 103/71 98 06/22/20 22:54 37.1 C 79 16 95/62 L 97
--- NOTE | 2020-06-23 18:00 | Hospitalist Progress Note ---
Date of Service June 23, 2020 Assessment & Plan (1) Intractable low back pain: LUmbar spinal stenosis with neurogenic claudication - Prior to surgery, pain management with: Acetaminophen 1g TID, Gabapentin 300mg PO TID, Lidocaine patch, Oxycodone 5-10mg PO Q4H PRN, and Dilaudid for breakthrough pain - s/p lumbar decompression and fusion on 06/21/2020 - No further steroids or NSAIDs per Dr Lombardo's recommendations as surgery potentially planned for Thursday 06/21 - Preop EKG ordered - CXR negative - Lumbar spine CT: Multilevel discogenic degeneration with ligamentum flavum thickening and facet arthrosis redemonstrated which again results in severe multilevel central canal stenosis with multilevel foraminal narrowing. Findings appear similar to the 02/26/2020 MRI lumbar spine. Lumbar dextroscoliosis. - Venous Doppler: No sonographic evidence of deep venous thrombosis - Post op pain management per ortho surgical team - Per surgery, will anticipate d/c home tomorrow GERD (gastroesophageal reflux disease) - Continue pantoprazole 40 mg p.o. twice daily Type 2 diabetes mellitus - HbA1c 6.4% on 06/20/20 - Continue Lantus 5 units twice daily - NovoLog: Goal BSG Range: Low 110 mg/dL, High 140 mg/dL, Correction Factor: 45 mg/dL/unit, INS:CHO Ratio: 1unit per 15 gms CHO consumed - AM BMP Hypertension - Continue home lisinopril 20 mg p.o. daily, amlodipine 10 mg p.o. daily. Hyperlipidemia - Notable history of this from patient but not on statin - Follow-up as outpatient DVT prophylaxis: SCDs FENGI: Carb consistent/DM2 Dispo: Med/Surg Code: Full Code (2) Lumbar spinal stenosis: (3) GERD (gastroesophageal reflux disease): (4) Type 2 diabetes mellitus: (5) Hypertension: Admission and Anticipated Discharge Date Admission Date: June 19, 2020 Supervising Physician Co-Signing Physician Notes Patient seen and examined with PGY-1 Dr. Lobato. Agree with history, exam findings, assessment and plan of care as outlined. 65 year old male with long history of back pain admitted with intractable low back pain. Now s/p lumbar fusion and decompression with Dr. Lombardo on Sunday, Jun 21. Has some post-op pain, which he has been told is to be expected at this point in the post-operative course. No complaints. Drain in tact, sero sang drainage. Lower extremity strength and sensation in tact. 1. Lumbar spinal stenosis with neurogenic claudication. Now s/p lumbar decompression and fusion. Post-operative pain management per surgical team. 2. GERD. Continue home PPI. 3. DM2. A1C 6.3. Currently on lantus 5u BID with bolus correction factor 1: 15. At home is on metformin 500mg TID. 4. HTN. Continue home Lisinopril 20mg, amlodipine 10mg. 5. Hyperlipidemia. Not on statin. Dipso: likely discharge home tomorrow Subjective Patient was seen and evaluated at bedside today. Patient reports that his back pain has slightly improved since yesterday but this has been well controlled with pain medication; he does acknowledge that he spoke with the surgeon this morning who noted that it is not abnormal to have some increased pain a few days out from surgery. However, patient notes that the pain is still "so much better than prior to surgery." He also notes that there is no lower extremity pain. He denies any numbness or tingling. Patient is tolerating a full diet without difficulty. He denies CP, SOB, cough, fever, chills, nausea, vomiting, or abdominal pain. He does note that he had 2 small BMs last night. Patient has no acute complaints or concerns at this time. Review of Systems Constitutional: no fever and no chills Respiratory: no cough and no dyspnea Cardiovascular: no chest pain Musculoskeletal: + back pain Neurologic: no paralysis, no numbness, no radiating pain and no headache(s) Physical Exam Physical Exam: GENERAL: No acute distress. Well developed and well nourished. Vital signs reviewed as above. A/O x3. EYES: EOMI. Anicteric sclerae. HENT: Moist mucous membranes. RESPIRATORY: Clear to auscultation bilaterally. No wheezing, rales, or rhonchi. CARDIOVASCULAR: Regular rate and rhythm. 2/6 LIU. ABDOMEN: Soft, non-tender and non-distended. No palpable masses. Normal bowel sounds. EXTREMITIES: No edema. Non-tender. 5/5 strength in knee flexion and extension. 5/5 programming internship strength. NEURO: Normal sensation to feet bilaterally to light touch. PSYCHIATRIC: Cooperative. Appropriate mood and affect. Results & Data Results & Data ([facility]) Vital Signs (Past 12 Hours) Vital Signs Temp Pulse Resp BP Pulse Ox 06/23/20 16:02 37.0 C 84 17 108/71 97 Resident Activity Tracking Resident Involvement: Resident Care Provided Care Provided: Adult Hospital Medicine
[2020-06-23] MEDS: DOCUSATE SODIUM/SENNA 50/8.6MG TAB PO SCH (22:06)
[2020-06-24] MEDS: oxyCODONE HCL IR 5 MG TAB (IMMEDIATE RELEASE) PO PRN ×2 (03:05→08:31)
[2020-06-24] MEDS: lisinopril 20 MG TAB PO SCH (08:33)
[2020-06-24] MEDS: amLODIPine BESYLATE 5 MG TAB PO SCH (08:33)
[2020-06-24] MEDS: LIDOCAINE 5% 1 PATCH TD SCH (08:33)
[2020-06-24] MEDS: GABAPENTIN 300 MG CAP PO SCH (08:34)
[2020-06-24] MEDS: PANTOprazole 40 MG TAB PO SCH (08:34)
[2020-06-24] MEDS: ACETAMINOPHEN 500 MG TAB PO SCH (08:34)
[2020-06-24] MEDS: INSULIN ASPART 100 UNITS/ML 3 ML PEN SC SCH (08:35)
[2020-06-24] MEDS: INSULIN GLARGINE SOLOSTAR 100 UNITS/ML 3 ML PEN SC SCH (08:35)
[2020-06-24] MEDS: DEXAMETHASONE SOD PHOSPHATE 8 MG in SYRINGE 0 ML IV SCH (08:45)
--- NOTE | 2020-06-24 09:57 | Discharge Summary ---
Date of Service June 24, 2020 Admission HPI Per Admitting Provider Shahram Draper is a 65 year old male who presents to the ER with severe back pain radiating down his right leg. He is known to Dr Lombardo and already has spinal fusion surgery planned for July. He has had back pain on and off after a slipped disc in 1996. However sudden became worse 3 days ago. Unsure what he did to exacerbate it but has been getting progressively worse since. He came to the ER yesterday and was given a course of steroids and oxycodone however despite these interventions his pain is 10/10 and he is stuck in a bent over position in a wheelchair. He is usually ambulatory with a cane. No perianal numbness or bladder/bowel incontinence. He does note gabapentin is useful for his pain. His care was discussed with Dr Lombardo by the ER PA and advised admission under medicine and he will see in the morning potentially for need for surgery on Sunday. Principal Diagnosis Lumbar spinal stenosis with neurogenic claudication Discharge Data Allergies Allergy/AdvReac Type Severity Reaction Status Date / Time No Known Allergies Allergy Unverified 12/13/17 07:12 Consultations 06/19/20 15:28 ED Decision to Admit Stat 06/19/20 18:51 Consult Orthopedic Surgery Routine 06/21/20 13:35 Consult Case Management - Discharge Planning Routine Procedures Performed Operation Date: 06/21/20 07:00 Actual Procedures p Decompression and Fusion L2 - S1, application of BMP, interbodies at L3-L4 and L4-L5(Not Applicable) - Long Lombardo DO Ordered Studies 06/19/20 12:15 CT lumbar spine wo con Stat 06/19/20 12:51 US venous doppler LE RT Stat 06/21/20 07:45 FL fluoroscopy <1hr Routine FL lumbar spine 2-3V Routine Hospital Course (1) Neurogenic claudication due to lumbar spinal stenosis: Patient underwent lumbar decompression fusion tolerated well second ortho pedic for postoperative. 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 Excellent strength testing. Subsequent discharge home. Discharge orders instructions from the chart for further review. Total Time Total Time Spent Total Time Spent (In Minutes): 20 minutes Discharge Plan Discharge Items Patient Disposition: Home - Self-Care Reason For Visit: INTRACTABLE BACK PAIN,LUMBAR SPINAL STENOSIS Discharge Diagnosis: Lumbar spinal stenosis with neurogenic claudication foraminal disc herniation L3-L4 Activity: As commented below Non-emergency contact: Primary Care Provider Call non-emergency contact if: you have any medication questions Follow-up/Referrals: Nikolay Byers [Primary Care Provider] - Diet: Regular Addtl Attending Provider Instructions: ACTIVITY RECOMMENDATIONS: SELF CARE INSTRUCTIONS AFTER THORACIC/LUMBAR FUSIONS 1. You may walk to your tolerance. It is good exercise for your legs and back. Expect some back and intermittent leg aches and pains. 2. You may perform "counter-top" level activities (make a sandwich, farheen with a project, etc.). 3. No bending or lifting of more than 10 pounds or back twisting of any nature (roll like a log when turning in bed). 4. You may ride in a car for 20-30 minutes at a time. No driving until after your first visit with your doctor. 5. Frequent changes of position and restricting sitting to 30 minutes at a time will help limit the amount of back spasms and stiffness you may experience. 6. You may discontinue the use of ambulatory aids (cane, crutches, etc.) once your strength and confidence allow. 7. 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 Do not take a tub bath, sit in a hot tub or go into a swimming pool until after your first recheck in the office. SPECIAL CARE INSTRUCTIONS: VERY IMPORTANT TO READ AND REVIEW A. Your surgical incision has been closed with a cosmetic suture under the skin that will dissolve in about 6 weeks. In 14 days, you can use a pair of clean scissors and cut the suture that is left outside of the skin at the ends of your incision. 1. The small skin tapes can be removed 7 days after surgery if they have not fallen off by that point. 2. You may keep the wound open to air as much as possible to promote healing after post-op day number 5 unless told otherwise by your doctor. 3. If you think the wound looks like it is becoming infected (redness or worsening drainage) and/or you are experiencing fever, chill or worsening back pain and muscle spasms, contact the office so that we may evaluate you as soon as possible. B. Complications are uncommon, but please contact us if you have any signs or symptoms of: 1. wound infection (fever higher than 102.5 degrees F, redness, separation of wound, drainage, or increasing pain from the incision) 2. blood clots in legs (pain, swelling, redness and warmth in legs) 3. urinary tract infection (fever higher than 102.5 degrees F, burning upon urination or increased frequency of urination) 4. nerve problems (inability to walk on your toes or heels, numbness, loss of bowel or bladder control) 5. any other symptoms that concern you C. Please call the office at if you have any concerns or questions about your operation or recovery. D. No smoking! Smoking drastically decreases the chance of a solid fusion. E. Do not take any anti-inflammatory medications (Indocin, Advil, Motrin, Aspirin, Naprosyn, etc.) as these may inhibit the chance of a solid fusion. Tylenol is okay to take for pain. MANAGING PAIN AFTER SPINAL SURGERY 1. Narcotic medication is intended for short-term use and will be provided for surgical pain. Surgical pain usually lasts for a period of 4-6 weeks. Narcotic medication includes Percocet, Vicodin, Darvocet, Tylenol #3 or Lortab. 2. Longer-term pain is more appropriately treated with non-narcotic medication such as Tylenol ES. 3. Muscle spasm is not appropriately treated with narcotics. Muscle relaxers such as Soma, Flexeril or Skelaxin can be used along with Tylenol ES. 4. Remember that we all live with some "aches and pains". This is not unusual or uncommon after an injury or as we get older. a. Back pain is expected and may include muscle spasms for 4 to 6 weeks after surgery. The pain should gradually improve. If the pain worsens for no apparent reason, please contact the office. b. Intermittent leg pain may also be experienced and should not be concerned about unless it worsens for no apparent reason. If so, please contact the office. 5. We will provide appropriate medication within the normal guidelines of their prescribed use. We will also be very cautious and aware of potential abuse and extended duration of patients' medication needs. a. Pain medications are for your comfort and to assist with sleep and rest so that the tissue can heal. They are not provided in order to return to normal activity and should not be used through the day. To do so or worsening pain at night can result from ongoing tissue damage and development of tolerance to the prescribed medicine. 6. Please allow 2-3 days to process refills. Prescriptions will not be mailed but must be picked up at the office. FOLLOW UP VISIT: Keep your scheduled follow-up appointment. Any questions, please call the office at . Pending Studies at Discharge: No Stand-Alone Forms: [facility], Smoking Cessation Medications and DC Order Prescriptions: New tramadol 50 mg tablet 50 mg PO Q6H PRN (Reason: pain, moderate) Qty: 30 RF: 0 oxycodone 5 mg tablet 5 mg PO Q6H PRN (Reason: pain, severe) Qty: 20 RF: 0 Continued lidocaine [Lidoderm] 5 % adhesive patch,medicated 1 patch topical DAILY Qty: 15 RF: 0 oxycodone 5 mg tablet 5 mg PO Q6H PRN (Reason: pain) Qty: 14 RF: 0 sennosides [Senokot] 8.6 mg tablet 8.6 mg PO HS Qty: 30 RF: 0 docusate sodium [Colace] 100 mg capsule 100 mg PO BID Qty: 60 RF: 0 metformin 500 mg tablet 500 mg PO TID RF: 0 lisinopril 20 mg tablet 20 mg PO DAILY RF: 0 tramadol 50 mg tablet 50 mg PO Q6 RF: 0 amlodipine 10 mg tablet 10 mg PO DAILY RF: 0 pantoprazole 40 mg tablet,delayed release (DR/EC) 40 mg PO BID RF: 0 gabapentin 300 mg capsule 300 mg PO DIRECTED RF: 0 Discharge Orders: Discharge Order (Routine); Ordered 06/24/20 Ordered By: Long Rodriguez/Other Patient Handouts: Managing Type 2 Diabetes Admission Data Admit Date/Time: 06/19/20 15:22 Attending Provider: Mary Kate Hartman Admit Provider: Octavio Brand Primary Care Provider: Nikolay Byers Other Providers: Octavio Brand ; Long Lombardo
--- NOTE | 2020-06-24 13:59 | Hospitalist Progress Note ---
Date of Service June 24, 2020 Assessment & Plan (1) Intractable low back pain: Intractable low back pain - Prior to surgery, pain management with: Acetaminophen 1g TID, Gabapentin 300mg PO TID, Lidocaine patch, Oxycodone 5-10mg PO Q4H PRN, and Dilaudid for breakt hrough pain - No further steroids or NSAIDs per Dr Lombardo's recommendations as surgery potentially planned for Thursday 06/21 - Preop EKG ordered - CXR negative - Lumbar spine CT: Multilevel discogenic degeneration with ligamentum flavum thickening and facet arthrosis redemonstrated which again results in severe multilevel central canal stenosis with multilevel foraminal narrowing. Findings appear similar to the 02/26/2020 MRI lumbar spine. Lumbar dextroscoliosis. - Venous Doppler: No sonographic evidence of deep venous thrombosis - Ortho consult 06/20: As he is having significant neurologic decline and pain with inability ambulate I am recommending urgent decompression and fusion. Would require a lumbar decompression fusion addressing stenosis from L2-S1. Risk benefits pros cons and alternatives were outlined in detail. At this time he made n.p.o. after midnight we will plan for the OR in the a.m. - Ortho surgery 06/21/20 -- see ortho op report for further details - Post op pain management per ortho surgical team - Per surgery, plan for d/c home today. Agree with this plan as patient is medically stable Lumbar spinal stenosis - Surgery 06/21 as noted above GERD (gastroesophageal reflux disease) - Continue pantoprazole 40 mg p.o. twice daily Type 2 diabetes mellitus - HbA1c 6.4% on 06/20/20 - Continue Lantus 5 units twice daily - NovoLog: Goal BSG Range: Low 110 mg/dL, High 140 mg/dL, Correction Factor: 45 mg/dL/unit, INS:CHO Ratio: 1unit per 15 gms CHO consumed - AM BMP Hypertension - Continue home lisinopril 20 mg p.o. daily, amlodipine 10 mg p.o. daily. Hyperlipidemia - Notable history of this from patient but not on statin - Follow-up as outpatient DVT prophylaxis: SCDs FENGI: Carb consistent/DM2 Dispo: Med/Surg Code: Full Code (2) Lumbar spinal stenosis: (3) GERD (gastroesophageal reflux disease): (4) Type 2 diabetes mellitus: (5) Hypertension: Admission and Anticipated Discharge Date Admission Date: June 19, 2020 Supervising Physician Co-Signing Physician Notes Patient seen and examined with PGY-1 Dr. Lobato. Agree with history, exam findings, assessment and plan of care as outlined. 65 year old male with long history of back pain admitted with intractable low back pain. Now s/p lumbar fusion and decompression with Dr. Lombardo on Sunday, Jun 21. Feeling well. No abdominal pain. Passing gas. Having bowel movements. Drain in tact, sero sang drainage. Lower extremity strength and sensation in tact. 1. Lumbar spinal stenosis with neurogenic claudication. Now s/p lumbar decompression and fusion. Post-operative pain management per surgical team. 2. GERD. Continue home PPI. 3. DM2. A1C 6.3. Currently on lantus 5u BID with bolus correction factor 1: 15. At home is on metformin 500mg TID. 4. HTN. Continue home Lisinopril 20mg, amlodipine 10mg. 5. Hyperlipidemia. Not on statin. Dipso: Discharge home today--I personally spent 10 minutes discharge planning for this patient. Dr. Lombardo completed discharge summary and post-operative patient instructions. Subjective Patient seen and evaluated at bedside this morning. He states that he is very eager to go home. Reports doing well with no new complaints or concerns. Review of Systems Constitutional: no fever and no chills Respiratory: no cough and no dyspnea Cardiovascular: no chest pain Gastrointestinal: no abdominal pain, no nausea and no vomiting Neurologic: no paralysis, no tingling, no numbness and no paresthesia Physical Exam Physical Exam: GENERAL: No acute distress. Well developed and well nourished. Vital signs reviewed as above. A/O x3. EYES: EOMI. Anicteric sclerae. HENT: Moist mucous membranes. RESPIRATORY: Clear to auscultation bilaterally. No wheezing, rales, or rhonchi. CARDIOVASCULAR: Regular rate and rhythm. 2/6 LIU. ABDOMEN: Soft, non-tender and non-distended. No palpable masses. Normal bowel sounds. EXTREMITIES: No edema. Non-tender. NEURO: Normal sensation to feet bilaterally to light touch. PSYCHIATRIC: Cooperative. Appropriate mood and affect. Results & Data Results & Data ([place]) Vital Signs (Past 12 Hours) Vital Signs Temp Pulse Resp BP BP Pulse Ox 06/24/20 10:25 36.6 C 73 19 108/71 121/82 97 06/24/20 07:29 36.6 C 73 19 121/82 97 Resident Activity Tracking Resident Involvement: Resident Care Provided Care Provided: Adult Hospital Medicine
== END 2020-06-24 12:20 | disposition home or self-care (01) | DRG 455 ==
LOC: ED 11:49 → 3E 15:22 → SUATTDRO 15:22 → 3E 18:25